=== PATIENT | male | born 1980 | race Caucasian/White ===

== ENCOUNTER 2025-04-11 15:32 | Inpatient (IN) | payer OTHER, SELFPAY ==
[2025-04-11 15:00] VITALS: BP 96/66
--- NOTE | 2025-04-11 16:30 | PTCARENOTE ---
Received pt directly from Dr. Rivers's office. Pt noted to have a foul smelling LT buttock abscess, draining brown fecal material. Old dressing removed, cleansed and 4x4 and ABD placed over fistula site. LT buttock drain present as well into LT
fistula area, and tubing going down pt's LT leg. Pt wearing his own pull ups to contain the fecal matter oozing from LT buttock. IV fluids to be started as ordered. Knee high teds applied and seq at bedside. Pt aware he can have clear liqs if he
wishes. Pt will be placed into a private room when available.
[2025-04-11 16:35] LABS: INR 1.14; PT 14.9 Sec (11.4-14.6)
[2025-04-11 16:36] LABS: APTT 38.3 Sec (23.4-35.0)
[2025-04-11 16:51] LABS: Blood Urea Nitrogen 20 mg/dl (9-20); Calcium 8.7 mg/dl (8.4-10.2); Carbon Dioxide 24 mmol/L (22-30); Chloride 102 mmol/L (98-107); Glucose 112 mg/dl (70-99); Potassium 4.1 mmol/L (3.5-5.1); Sodium 133 mmol/L (135-145); eGFR > 60.00
[2025-04-11 16:59] LABS: Hematocrit 26.4 % (39.0-52.0); Hemoglobin 7.5 g/dL (13.0-18.0); Mean Corp Hgb Conc. 28.4 g/dL (33.0-37.0); Mean Corpuscular Hgb 18.7 pg (27.0-31.0); Mean Corpuscular Volume 65.7 fL (80.0-94.0); Mean Platelet Volume 8.7 fL (7.4-10.4); Platelet Count 634 10^3/uL (130-400); Red Blood Cell Count 4.02 10^6/uL (4.70-6.10); Red Cell Dist. Width 16.8 % (11.5-14.5); White Blood Cell Count 15.8 10^3/uL (4.8-10.8)
[2025-04-11] MEDS: NORMOSOL-R/PLASMALYTE-A 1000 IV (17:33)
[2025-04-11 17:49] LABS: ALT (SGPT) 21 U/L (0-50); AST (SGOT) 24 U/L (17-59); Albumin 3.4 g/dl (3.5-5.0); Alkaline Phosphatase 58 U/L (38-126); Blood Urea Nitrogen 20 mg/dl (9-20); Calcium 8.6 mg/dl (8.4-10.2); Carbon Dioxide 25 mmol/L (22-30); Chloride 102 mmol/L (98-107); Glucose 110 mg/dl (70-99); Potassium 4.1 mmol/L (3.5-5.1); Sodium 135 mmol/L (135-145); Total Bilirubin 0.6 mg/dl (0.2-1.3); Total Protein 6.1 g/dl (6.3-8.2); eGFR > 60.00
[2025-04-11 18:30] LABS: % Basophils 0.2 % (0-2); % Immature Granulocytes 0.6 % (0-0.5); % Lymphocytes 4.6 % (20.5-51.1); % Monocytes 6.4 % (1.7-9.3); % Neutrophils 88.2 % (42.2-75.2); Absolute Immature Granulocytes 0.1 10^3/uL (0-0.05); Absolute Lymphocytes 0.7 10^3/uL (1.2-3.4); Anisocytosis 1+; Hypochromasia 1+; Macrocytosis Occasional; Nucleated Red Blood Cells % 0 % (-); Ovalocytes 1+; Poikilocytosis 1+
[2025-04-11 18:36] LABS: Normal RBC Morphology No
[2025-04-11 23:03] VITALS: BP 110/66
[2025-04-12] MEDS: NORMOSOL-R/PLASMALYTE-A 1000 IV (05:57)
--- NOTE | 2025-04-12 06:49 | CON.GI ---
Addendum entered and electronically signed by Sudhir Luevano MD 04/12/25 14:03:
I saw and examined the patient.
The PROPAGATOR or PA's note was reviewed and I agree with the note.
Comment: 44yo pt with perianal Crohn's disease known to me but lost to follow up. Was on remicade in past, but switched to humira possibly due to insurance reasons. Developed peiranal disease and switched to Cimzia. Eventually, he stopped cimzia
and acquired predisone on his own since he felt more comfortable on steroids and was seen at another GI practice briefly then lost to follow up. Perianal disease has worsened. CT shows extensive perianal disease. He has a drain placed via L
buttock into prior abscess. Drain study today shows prompt filling of rectum via multiple tracts. CT shows extensive fistulous disease between loops of colon and to the skin and presacral space.
RECTAL- extensive perianal disease with several setons in place through multiple fistulous tracts with severe distortion of anus. L buttock drainage catheter in place.
REC:
Pt now has severe perianal Crohn's disease that has progressed on chronic steroids, off biologics
Pt anxious about staying in the hospital and declined blood transfusion for Hgb 6.5 despite recommendations from all providers
I reinforced the importance of addressing his severe Crohn's disease and probable need for diverting colostomy to get control of his perianal disease
I discussed starting biologics to attempt to help control disease medically. No residual abscess on CT or IR drain study
I told him I would leave my contact info on d/c instructions to follow up in the office while working with Colorectal Surgery for optimal management of his disease
These interventions could be accomplished with more urgency as an inpatient
Original Note:
Consultation
-
Date/Time Consultation Requested: 04/11/25 1700
Date/Time Consultation Performed: 04/12/25 0900
Requesting Provider: Damian Rivers MD
Performing Provider: MICKY Sims, Sudhir Luevano MD
Reason for Consultation: crohn's disease
Medical History
Chief Complaint / HPI
History of Present Illness:
Pt is a 44yow with history of crohns with anal fistulizing disease with stricturing, pelvic abscesses and prior fistulectomy, and seton placement. He was initially diagnosed in 2007 with prednisone therapy. He was placed on Remicade infusion
from 2007 til 2015 and did very well on therapy. He then was placed on Humira [id number] due to insurance issues and while on Humira developed anal fistulas. He then switched to Cimzia. He then stopped Cimzia around 2020 on his own and obtained
Prednisone from [facility]. He has been off biologic therapy since that time with continued Prednisone use. He admits he only saw Dr. Maldonado for a few visits and has been non compliant with any GI follow up. He has evaluation with Dr. Rivers in
2021 with placement of IR drains then recently returned for further intervention. He admits to poor follow up for drain management with several drains in place for last few years. He now presents for further management and asked to see for
continued medical therapy for crohn's disease. Last colonoscopy was in [address] Luevano - Inflammation was found from the anus to the cecum secondary to pancolitis. Biopsied - The examined portion of the ileum was normal. Biopsied. bx
transverse with minimal active colitis and descending with some slight evidence of chronicity, rectal biopsy with acute erosive inflammation with crypt abscess formation and cryptitis with evidence of chronicity.
At this time patient admits to slow wt loss with baseline around 215 and now 170 range. His major complaint is continued drainage and incontinence from rectal fistulas and admits to passage of formed stools. he did have vomiting recently
related to viral illness but not a chronic issues. He denies dysphagia, GERD,abdominal pain, fever, or rectal bleeding. CT pending to be completed. Labs noted with hbg down to 7.5 with drop to 6.8 after admission with MCV 65.7, WBC 15,8,
platelets 634, Na 133, CRP 269.7, albumin 3.4, otherwise stable labs.
Past Medical History
Past Medical History: CVA (TIA) and Other (crohns disease with hx fistulizing disease with recurrent perirectal abscess , ABDIRIZAK, liver hemangiomas )
Past Surgical History: Other (multiple colorectal interventions for fistulizing disease with prior fistulectomy and seton placement, lump removal from shoulder, neck cyst drainage)
Social History
Tobacco: Non-Smoker
Alcohol: None
Drug: None
Living: With Family (parents )
Employment: Employed (district infection control manager )
Family History
Family History: Other (father with ulcerative colitis, no family hx colon CA)
Allergies / Home Medications
Allergy/AdvReac Type Severity Reaction Status Date / Time
penicillin G Allergy Hives Verified 02/06/22 13:02
Penicillins Allergy Hives Verified 02/06/22 13:02
�Medication �Instructions �Recorded
Lactobac no.2-Bifidobac no.1-S. 1 cap PO DAILY Supplement 02/06/22
thermo 112.5 billion cell capsule
(High Potency Probiotic)
certolizumab pegol 400 mg/2 mL 400 mg SC Q2W Antirheumatic, 02/06/22
(200 mg/mL x2) subcutaneous Disease Modifying;
syringe kit (Cimzia)
cholecalciferol (vitamin D3) 50 2,000 units PO DAILY Supplement 02/06/22
mcg (2,000 unit) tablet
cyanocobalamin (vitamin B-12) 100 100 mcg PO DAILY Supplement 02/06/22
mcg tablet
hydrocodone 5 mg-acetaminophen 325 1 - 2 tab PO Q6HPRN PRN moderate 02/06/22
mg tablet pain
ineolyzcb-HJN-ER-acetaminophen 02/08/22
6.25 mg-30 [id number]-828mq/15mL oral
liqd
melatonin 5 mg tablet 02/08/22
levofloxacin 750 mg tablet 750 mg PO DAILY 7 days #7 tabs 02/09/22
metronidazole 500 mg tablet 500 mg PO TID 7 days #21 tabs 02/09/22
prednisone 20 mg tablet 20 mg PO DAILY INFLAMMATION ##0 02/09/22
Review of Systems
-
History Source: Patient
Constitutional: Reports Weight Loss
EENT: Reports No Symptoms
Respiratory: Reports No Symptoms
Cardiac: Reports No Symptoms
Abdomen/GI: Reports Diarrhea (with fecal leakage from anal fistulas )
: Reports No Symptoms
Musculoskeletal: Reports No Symptoms
Skin: Reports No Symptoms
Neurological: Reports Weakness
Endocrine: Reports No Symptoms
Hematologic/Lymphatic: Reports No Symptoms
Vital Signs
Temp Pulse Resp BP Pulse Ox
99.1 F 93 18 110/66 95
04/11/25 23:03 04/11/25 23:03 04/11/25 23:03 04/11/25 23:03 04/11/25 23:03
Physical Exam
Exam
General: Well Developed, Well Nourished and No Apparent Distress
HEENT: Normocephalic and Anicteric
Respiratory: Clear
Cardiac: Regular Rhythm
GI: Soft, Non Tender and Distended (lower abdominal fullness )
Rectal: Other (left buttock with drainage catheter with mucous drainage from site, rectal area with large amount of draining foul smelling brown stool and nodularity with fistulas-- some limitation with pt ability to turn )
Musculoskeletal: No Clubbing and No Cyanosis
Skin: Warm and Dry
Neuro: Awake, Alert and AO x 3
Psych: Calm
Results
WBC 15.8 10^3/uL (4.8-10.8) H 04/11/25 16:17
Hgb 7.5 g/dL (13.0-18.0) L 04/11/25 16:17
Hct 26.4 % (39.0-52.0) L 04/11/25 16:17
MCV 65.7 fL (80.0-94.0) L 04/11/25 16:17
Plt Count 634 10^3/uL (130-400) H 04/11/25 16:17
Absolute Neuts (auto) 14.0 10^3/uL (1.4-6.5) H 04/11/25 16:17
PT 14.9 Sec (11.4-14.6) H 04/11/25 16:17
INR 1.14 04/11/25 16:17
APTT 38.3 Sec (23.4-35.0) H 04/11/25 16:17
Sodium 135 mmol/L (135-145) 04/11/25 17:21
Potassium 4.1 mmol/L (3.5-5.1) 04/11/25 17:21
Chloride 102 mmol/L (98-107) 04/11/25 17:21
Carbon Dioxide 25 mmol/L (22-30) 04/11/25 17:21
BUN 20 mg/dl (9-20) 04/11/25 17:21
Creatinine 1.1 mg/dL (0.7-1.3) 04/11/25 17:21
Calcium 8.6 mg/dl (8.4-10.2) 04/11/25 17:21
Total Bilirubin 0.6 mg/dl (0.2-1.3) 04/11/25 17:21
AST 24 U/L (17-59) 04/11/25 17:21
ALT 21 U/L (0-50) 04/11/25 17:21
Alkaline Phosphatase 58 U/L (38-126) 04/11/25 17:21
Diagnostic Image Results:
2008 MR ABDOMEN W/O & W CONTRAST
Impression: Two small hepatic lesions which are most likely hemangiomas.
Renal cysts.
02/06/22 CT Abd/Pel (IV only)-DH only
Two new fluid collections with air-fluid levels about the rectum consistent with abscesses. 6.1 x 3.0 cm and 1.8 x 1.7 cm
Additional tiny pockets of extraluminal air possibly secondary to additional abscesses versus sequela of previous abscesses or fistula formation/microperforation. New. This could further be evaluated by administration of oral contrast.
Moderate fecal material throughout the colon.
Too small to characterize hypodense bilateral renal lesions likely benign cysts.
Numerous tiny appendicoliths versus oral contrast in an otherwise normal-appearing appendix.
This case was discussed with Elbert Ledezma on 02/06/2022 at 6:25 PM. He states the patient is scheduled for surgery tomorrow. More recent previous CAT scans were performed [facility] and are not available for review
2021- multiple abscess drainages
Prior GI Procedures:
EGD: none
Colonoscopy:
06/2014 colonoscopy [facility]- - Inflammation was found from the anus to the cecum secondary to pancolitis. Biopsied - The examined portion of the ileum was normal. Biopsied. bx transverse with minimal active colitis and descending with some slight
evidence of chronicity, rectal biopsy with acute erosive inflammation with crypt abscess formation and cryptitis with evidence of chronicity
Assessment / Plan
-
Pt is a 44yow with history of crohns with anal fistulizing disease with stricturing, pelvic abscesses and prior fistulectomy, and seton placement. He was initially diagnosed in 2007 with prednisone therapy. He was placed on Remicade infusion
from 2007 til 2015 and did very well on therapy. He then was placed on Humira [id number] due to insurance issues and while on Humira developed anal fistulas. He then switched to Cimzia. He then stopped Cimzia around 2020 on his own and obtained
Prednisone from [facility]. He has been off biologic therapy since that time with continued Prednisone use. He admits he only saw Dr. Maldonado for a few visits and has been non compliant with any GI follow up. He has evaluation with Dr. Rivers in
2021 with placement of IR drains then recently returned for further intervention. He admits to poor follow up for drain management with several drains in place for last few years. He now presents for further management and asked to see for
continued medical therapy for crohn's disease. Last colonoscopy was in [address] Luevano - Inflammation was found from the anus to the cecum secondary to pancolitis. Biopsied - The examined portion of the ileum was normal. Biopsied. bx
transverse with minimal active colitis and descending with some slight evidence of chronicity, rectal biopsy with acute erosive inflammation with crypt abscess formation and cryptitis with evidence of chronicity. Labs noted with hbg down to 7.5 with
drop to 6.8 after admission with MCV 65.7, WBC 15.8, platelets 634, Na 133, CRP 269.7, albumin 3.4, otherwise stable labs.
-fistulizing crohns disease with multiple draining rectal fistulas on exam marked elevated CRP
-microcytoic anemia
-leukocytosis
PLAN;
Etiology of symptoms with concern continued crohns with severe fistulizing disease
agree with CT to eval for pelvic abscess, status of fistula--
likely may need MR pelvis pending results
for hospitalist and IR eval
await plan from colorectal likely may need further drainage
currently on Prednisone 20mg daily
pt will need to consider restart of biologic therapy -- will review with Dr. Luevano
add ESR, CRP, fecal stevie
add hepatitis B/C and TB testing
clear diet
trend hbg t/c transfusion
iron studies, B12, folate pending to see if benefit from iron therapy
cont compression stocking for DVT prophylaxis -- consider changing to Lovenox as high risk for DVT with active IBD
pt states he will stay for CT and labs but intends to leave today-- encouraged to stay for work up and treatment -- from GI standpoint with severe disease and anemia would need to sign out AMA
-
-
Thank you for consultation and allowing me to participate in the patient's care. Please call the injection maintenance technician GI physician during the after hours with any questions or concerns.
[2025-04-12 07:29] VITALS: BP 106/63
[2025-04-12 08:43] LABS: Erythrocyte Sed Rate 106 mm/hour (0-20)
[2025-04-12 08:45] LABS: % Basophils 0.4 % (0-2); % Eosinophils 0.3 % (0-6); % Immature Granulocytes 0.7 % (0-0.5); % Lymphocytes 6.9 % (20.5-51.1); % Monocytes 10.5 % (1.7-9.3); % Neutrophils 81.2 % (42.2-75.2); Absolute Basophils 0.1 10^3/uL (0-0.2); Absolute Immature Granulocytes 0.1 10^3/uL (0-0.05); Absolute Lymphocytes 0.8 10^3/uL (1.2-3.4); Absolute Monocytes 1.2 10^3/uL (0.1-0.6); Absolute Neutrophils 9.6 10^3/uL (1.4-6.5); Hematocrit 23.4 % (39.0-52.0); Hemoglobin 6.8 g/dL (13.0-18.0); Mean Corp Hgb Conc. 29.1 g/dL (33.0-37.0); Mean Corpuscular Volume 65.5 fL (80.0-94.0); Mean Platelet Volume 9.1 fL (7.4-10.4); Nucleated Red Blood Cells % 0 % (-); Platelet Count 547 10^3/uL (130-400); Red Blood Cell Count 3.57 10^6/uL (4.70-6.10); Red Cell Dist. Width 16.7 % (11.5-14.5); White Blood Cell Count 11.8 10^3/uL (4.8-10.8)
[2025-04-12 08:50] LABS: Blood Urea Nitrogen 19 mg/dl (9-20); Calcium 8.6 mg/dl (8.4-10.2); Carbon Dioxide 28 mmol/L (22-30); Chloride 102 mmol/L (98-107); Glucose 86 mg/dl (70-99); Potassium 4.1 mmol/L (3.5-5.1); Sodium 136 mmol/L (135-145); eGFR > 60.00
--- NOTE | 2025-04-12 09:27 | HPS.HSE ---
Family Physician
-
Family Physician: NO INTERVIEW UNKNOWN
Chief Complaint
-
anal fistulas
History of Present Illness
44-year-old male presents as a direct admission after discussion with Dr. Rivers in clinic on 04/03/2025. The patient is known to our service in the past for severe Crohn's disease of the rectum and anal area with anal fistulas, anal stricturing, and
a chronic pelvic abscess. He did have an IR drain placed at 1 point in 2021 which has remained in place. He is under the care of Dr. Maldonado of GI and at one point was on Biologics but currently is now only on prednisone. His last colonoscopy
appears to have been from Dr. Luevano in 2013 which showed gross inflammation from the anus to the cecum. Biopsies were done and this showed microscopic inflammation and colitis in the transverse colon. The terminal ileum grossly looked normal. The
patient states he is still dealing with anal fistula problems. He has seton drains that are still in place. He may have undergone a pelvic CT at [facility] in [place] in December but the report is not available and the patient does not know the
results. He has been eating well and his weight has been stable. He denies any upper or lower GI symptoms. He sometimes feels fatigued. His bowel movements are formed. Sometimes he has issues with incontinence at night and wears an adult diaper.
He is requesting a colostomy creation due to the chronic fistulas. The IR drain has been in place since 2021 and he states that the bag broke off and he manages it with 4 x 4 gauzes. The drain currently is putting out feculent material. He was
told by his GI doctor that he would need surgery due to the extent of his disease. He was referred to [place] but opted to seek out Dr. Rivers's opinion due to proximity. Given the above, we have direct admitted him for GI workup as well as imaging
and IR consultation for management of the drain in place.
Medical History
Past Medical History
Past Medical History: Reports Other (crohns disease with anal fistulas and abscesses, TIA, iron deficiency anemia)
Past Surgical History: Reports Other (lump removed left shoulder, cyst drained in ER in the neck 2016, fistula surgery: 2016 (x3), 2017 (x2), IR drain placement 2021)
Social History
Tobacco: Non-smoker
Family History
Family History: Not pertinent
Allergies / Home Medications
Allergies reflects when Allergies were last updated in [employer].
Home Medications with original date entered in [employer]
Allergy/Medication List:
Allergies: penicillin - hives
Medications:
Vit D 2,000 units po daily
Vitamin B12 100mcg po daily
Probiotic 1 cap po daily
Tylenol #3 1-2 tabs po q6h prn pain
Melatonin po PRN
Prednisone 10mg po daily
Review of Systems
-
History Source: Patient
A 12 point ROS was completed and negative except as noted: Yes
Abdomen/GI: Reports Diarrhea and Other (Occasional incontinence and wears a diaper at night. )
Physical Exam
Vital Signs
Vital Signs
Temp Pulse Resp BP Pulse Ox
98.6 F 87 18 106/63 99
04/12/25 07:29 04/12/25 07:29 04/12/25 07:29 04/12/25 07:29 04/12/25 07:29
Physical Exam
General: Well Developed, Well Nourished and No Apparent Distress
GI: Soft, Non Tender and Non Distended
Rectal: Other ( IR drain in place. Multiple fistulas throughout the perianal area.)
Skin: Warm and Dry
Neuro: AO x 3
Laboratory Results
-
04/12/25 07:32
04/12/25 07:32
Laboratory Results
PT 14.9 Sec (11.4-14.6) H 04/11/25 16:17
INR 1.14 04/11/25 16:17
APTT 38.3 Sec (23.4-35.0) H 04/11/25 16:17
Total Bilirubin 0.6 mg/dl (0.2-1.3) 04/11/25 17:21
AST 24 U/L (17-59) 04/11/25 17:21
ALT 21 U/L (0-50) 04/11/25 17:21
Alkaline Phosphatase 58 U/L (38-126) 04/11/25 17:21
Data Reviewed
-
Lab Data: Labs Reviewed by me, Discussed with Physician and Discussed with Patient
Old Records: Reviewed
Impression/Plan
-
IMPRESSION:44-year-old male with a history of Crohn's disease currently on prednisone 10 mg daily and managed by Dr. Maldonado with gastroenterology, presents as a direct admit to [facility] for further workup and potentially surgery
PLAN:
- IR consulted for a drain study
- Gastroenterology consult
- Hemoglobin 6.8. Will plan on transfusing 1 unit packed red blood cell and trend hemoglobin. Likely this is anemia of chronic disease.
- Remain on clears for now
- Will consult hospitalist for medical management
- Continue on prednisone 10 mg daily for now
- CT abdomen and pelvis ordered, plans to follow
- Wound RN consulted
- C-reactive protein 269.7. Trend.
- Fecal procalcitonin pending
--- NOTE | 2025-04-12 09:36 | CON.HOSP ---
Family Physician
-
Family Physician: NO INTERVIEW UNKNOWN
Chief Complaint
-
General Malaise
History of Present Illness
44M poorly controlled Crohn's dz presents as direct admission after discussion with Dr. Rivers in clinic on 04/03/2025. Hx significant for severe Crohn's disease of the rectum and anal area with anal fistulas, stricturing, and chronic pelvic abscess
s/p IR drain placement. Following drain placement, patient was lost to follow up. Drain has remained in place since then. Presenting with worsening perianal complaints. Patient was direct admit for further evaluation treatment- concern requiring
diverting ostomy to promote healing perianal lesions. Patient also noted with worsening anemia during hospitalization Hgb <7. Vitals signs otherwise stable on room air. Hospitalist service consulted for further assistance medical mgmt.
Medical History
Allergies / Home Medications
Allergies reflects when Allergies were last updated in [employer].
Home Medications with original date entered in [employer]
Allergy/Medication List:
Allergies
Allergy/AdvReac Type Severity Reaction Status Date / Time
penicillin G Allergy Hives Verified 02/06/22 13:02
Penicillins Allergy Hives Verified 02/06/22 13:02
Home Medications
Lactobac no.2-Bifidobac no.1-S. thermo 112.5 billion cell capsule (High Potency Probiotic) 1 cap PO DAILY Supplement 02/06/22
cholecalciferol (vitamin D3) 50 mcg (2,000 unit) tablet 2,000 units PO DAILY Supplement 02/06/22
cyanocobalamin (vitamin B-12) 100 mcg tablet 100 mcg PO DAILY Supplement 02/06/22
hydrocodone 5 mg-acetaminophen 325 mg tablet 1 - 2 tab PO Q6HPRN PRN moderate pain 02/06/22
qnhylbkze-LVK-FU-acetaminophen 6.25 mg-30 wk-44me-103gs/15mL oral liqd 02/08/22
melatonin 5 mg tablet PO PRN PRN difficulty sleeping 02/08/22
prednisone 20 mg tablet 20 mg PO DAILY INFLAMMATION ##0 02/09/22
Physical Exam
Vital Signs
Vital Signs
Temp Pulse Resp BP Pulse Ox
98.6 F 87 18 106/63 99
04/12/25 07:29 04/12/25 07:29 04/12/25 07:29 04/12/25 07:29 04/12/25 07:29
Laboratory Results
-
Laboratory Results
04/12/25 07:32
04/12/25 07:32
PT 14.9 Sec (11.4-14.6) H 04/11/25 16:17
INR 1.14 04/11/25 16:17
APTT 38.3 Sec (23.4-35.0) H 04/11/25 16:17
Total Bilirubin 0.6 mg/dl (0.2-1.3) 04/11/25 17:21
AST 24 U/L (17-59) 04/11/25 17:21
ALT 21 U/L (0-50) 04/11/25 17:21
Alkaline Phosphatase 58 U/L (38-126) 04/11/25 17:21
Impression / Plan
-
Physical Exam
General: Some pallor noted, cyanosis, or jaundice. Generally appears unwell
HEENT: Throat clear, Normocephalic atraumatic, Pale palpebral conjunctivae
NECK: Supple. No JVD Carotid Bruits
RESPIRATORY: Lungs clear to auscultation. No crackles wheezes stridor
CVS: S1, S2 normal. RRR. No murmur, rub or gallop
ABDOMEN: Soft, non-tender. No distension. BS+/normal.
EXTREMITIES: No peripheral cyanosis or edema. Delayed capillary refill fingertips
Neuro: AOx3 conversant coherent
IMPRESSION:
44M poorly controlled Crohn's dz presents as direct admission after discussion with Dr. Rivers in clinic on 04/03/2025. Hx significant for severe Crohn's disease of the rectum and anal area with anal fistulas, stricturing, and chronic pelvic abscess
s/p IR drain placement. Following drain placement, patient was lost to follow up. Drain has remained in place since then. Presenting with worsening perianal complaints. Patient was direct admit for further evaluation treatment- concern requiring
diverting ostomy to promote healing perianal lesions. Patient also noted with worsening anemia during hospitalization Hgb <7. Vitals signs otherwise stable on room air. Hospitalist service consulted for further assistance medical mgmt.
PLAN:
severe Crohn's dz with perianal fistulas strictures
hx pelvic abscess with IR drain placement lost to follow up
Severe anemia, likely underlying Anemia of Chronic Disease
Leukocytosis
Though Vital Signs Stable on Room air, patient appears unwell
Follow up CT
Check Blood Cultures
Discussed with patient recommendation for transfusion given low Hgb 6.8.
Patient AOx3 at capacity to make his own medical decisions- declined consent for transfusion
Discussed the risks and potential benefits of transfusion vs refusing transfusion. Included in discussion was possibility of cardiac event with severe anemia and even the possibility of .
Patient able to verbalize his understanding of risks/benefits discussed and nonetheless declines to receive transfusion at this time. Patient aware to notify nurse/staff should he change his mind.
Empiric abx levofloxacin flagyll
ID GI eval
Cont mgmt as per primary CRS
I spent a total of 80 minutes with the patient or on the floor. More than 50% of this time involved counseling and coordination of care.
[2025-04-12] MEDS: DELTASONE 10 MG PO (09:40)
[2025-04-12] MEDS: OMNIPAQUE 50 ML PO (09:40)
[2025-04-12 10:39] VITALS: BMI 21.6
--- NOTE | 2025-04-12 10:40 | W.PN.UPDATE ---
Update Note
Progress Note Update
Discussed with patient recommendation for transfusion given low Hgb 6.8.
Patient AOx3 at capacity to make his own medical decisions- declined consent for transfusion
Discussed the risks and potential benefits of transfusion vs refusing transfusion. Included in discussion was possibility of cardiac event with severe anemia and even the possibility of .
Patient able to verbalize his understanding of risks/benefits discussed and nonetheless declines to receive transfusion at this time. Patient aware to notify nurse/staff should he change his mind.
[2025-04-12 10:46] LABS: Total Iron Binding Capacity 194 ug/dl (261-462)
[2025-04-12 10:47] LABS: Iron < 20 ug/dl (49-181)
[2025-04-12 10:55] VITALS: BMI 22.0
[2025-04-12 11:03] LABS: Lactic Acid 0.9 mmol/L (0.7-2.0)
[2025-04-12 11:25] LABS: Hematocrit 22.3 % (39.0-52.0); Hemoglobin 6.5 g/dL (13.0-18.0)
--- NOTE | 2025-04-12 12:33 | CM ---
hostel manager reviewed patient's chart and met with patient and patient states he lives with his parents in a multilevel home, patient is independent with adl's and ambulation, no dme, per patient his plan it to return to home today.
PCP: Dr Davis
Pharmacy: [facility] in [place].
[2025-04-12 12:41] LABS: Folate 18.9 ng/ml (2.76-20); Vitamin B12 593 pg/ml (239-931)
--- NOTE | 2025-04-12 13:00 | WOUNDNOTE ---
WOC RN NOTE: Reviewed chart and met with patient. Patient has fistula to right buttock. At time of assessment patient wanted to leave AMA but was agreeable to have his fistula assessed. He declined offer for possible pouching solutions but was
agreeable to try barrier cream around drains site. The fistula site was cleaned and barrier ointment applied around drain. Patient likes to cover area with ABD, secure with tape and brief. Will follow as needed.
--- NOTE | 2025-04-12 13:55 | PTCARENOTE ---
Patient adamant about going home today, despite informing patient of risks of leaving AMA at this time. Dr. Rivers in to discuss risks as well, patient still deciding to leave AMA. AMA form signed by both Dr. Gill and patient and placed in chart.
Patient IV removed.
--- NOTE | 2025-04-12 15:06 | W.PN.UPDATE ---
Update Note
Progress Note Update
CT reviewed earlier with Dr. Ann. Multiple pelvic fistulas without fluid collection. Transgluteal drain in place (tip in rectal lumen). Would be reasonable to pull IR drain. Patient agreeable but wants to do next week. Patient anxious and
decided to leave AMA despite my urgings.
--- NOTE | 2025-04-12 15:06 | W.PN.UPDATE ---
Update Note
Progress Note Update
I went to see patient, but he had already signed out AMA.
[2025-04-13 15:16] LABS: Hepatitis B Core Ab, IgM Negative (Negative)
[2025-04-13 15:38] LABS: Hepatitis B Surface Antigen Negative (Negative)
[2025-04-13 15:57] LABS: Hepatitis B Core Ab, Total Negative (Negative); Hepatitis B Surface Antibody Negative; Hepatitis C Antibody Negative (Negative)
== END 2025-04-12 14:48 | disposition left against medical advice (07) | DRG 385 ==
LOC: 4 WEST ACU 15:32
PROVIDERS: Nurse Practitioner Adult Health; Physician Assistant; ADMITTING PHYSICIAN Surgery; CONSULT PHYSICIAN Internal Medicine; CONSULT PHYSICIAN Internal Medicine Gastroenterology
DX: K50.113 Crohn's disease of large intestine with fistula (principal); K65.1 Peritoneal abscess; R32 Unspecified urinary incontinence; D63.8 Anemia in other chronic diseases classified elsewhere; D18.03 Hemangioma of intra-abdominal structures; Z86.73 Personal history of transient ischemic attack (TIA), and cerebral infarction without residual deficits; Z88.0 Allergy status to penicillin
CPT/HCPCS: 74177; 80048; 80053; 82607; 82728; 82746; 83540; 83550; 83605; 85014; 85018; 85025; 85610; 85652; 85730; 86140; 86480; 86704; 86705; 86706; 86803; 86850; 86900; 86901; 87040; 87070; 87340; 93005; Q9967

== ENCOUNTER → 2025-04-25 09:55 | Outpatient (REF) | payer OTHER, SELFPAY ==
[2025-04-25 10:10] VITALS: BP 129/81; BP_SYST 119
[2025-04-25 10:50] VITALS: BP 131/91; BP_SYST 106
[2025-04-25 11:04] VITALS: BP 131/91
== END ==
LOC: RADI 09:55
PROVIDERS: ATTENDING PHYSICIAN Surgery
DX: Z46.82 Encounter for fitting and adjustment of non-vascular catheter (principal); K65.1 Peritoneal abscess
CPT/HCPCS: 49424; 76080

== ENCOUNTER 2025-05-10 11:21 | Outpatient (RCR) | payer OTHER, SELFPAY ==
[2025-05-10 11:50] VITALS: BP 99/64
[2025-05-10 12:11] VITALS: BP 113/67
[2025-05-10 14:11] VITALS: BP 114/74
== END 2025-05-29 23:59 | disposition home or self-care (01) ==
LOC: OID 11:21
PROVIDERS: ATTENDING PHYSICIAN Internal Medicine Gastroenterology; FAMILY PHYSICIAN Internal Medicine
DX: K50.80 Crohn's disease of both small and large intestine without complications (principal); K65.1 Peritoneal abscess; K60.30 Anal fistula, unspecified; K62.4 Stenosis of anus and rectum
CPT/HCPCS: 36415; 36430; 86850; 86900; 86901; 86920; P9016

== ENCOUNTER 2025-05-31 06:31 | Day surgery (SDC) | payer OTHER, SELFPAY | END 2025-05-31 09:34 | disposition home or self-care (01) | LOC: GI 06:31 | PROVIDERS: ATTENDING PHYSICIAN Internal Medicine Gastroenterology | DX: K60.30 Anal fistula, unspecified (principal); K50.113 Crohn's disease of large intestine with fistula; K52.9 Noninfective gastroenteritis and colitis, unspecified; K51.418 Inflammatory polyps of colon with other complication | CPT/HCPCS: 45380; 88305 ==

== ENCOUNTER 2025-08-11 14:11 | Inpatient (IN) | payer OTHER, SELFPAY ==
[2025-08-11] VITALS (12 sets, daily range): BP systolic 95–123; BP diastolic 57–76; BMI 18.6; BMI 17.6
--- NOTE | 2025-08-11 12:47 | ED.GENMED ---
History of Present Illness
General
Chief Complaint: Abnormal Lab Value
Time Seen by Provider: 08/11/25 12:47
History of Present Illness
History of Present Illness:
FOCUSED PAST MEDICAL HISTORY
- Crohn's, anal abscess/fistula
REVIEW OF OLD RECORDS
- Hemoglobin 04/12/2025 was 6.5. The patient had colonoscopy with Dr. Jefferson May 2025 for follow-up of Crohn's disease and at that time extensive fistulas were noted in the perianal region with drainage
Note:
CHIEF COMPLAINT(S)
Scheduled for colostomy due to Crohns disease and low hemoglobin levels.
HISTORY OF PRESENT ILLNESS
The patient is a 44-year-old male with a history of severe Crohns disease. He is scheduled for a colostomy, which was initially planned for August 24 but has now been moved to the upcoming . He was advised by Dr. Rivers, who is managing
his care, to be admitted for a blood transfusion. The patients recent hemoglobin level was 6.14, [facility] He reports previously received blood transfusions, which provided temporary relief of symptoms, noting an
improvement in energy levels that quickly diminished by the following day.
The patient describes chronic abdominal pain persisting for several months, for which he has been self-medicating with prednisone until May. Additionally, the patient previously used Zimzia until 2020, when he ceased the medication due to concerns
of a potential infection, later identified as a perforation in the colon. He has been off prednisone since early May and is not currently on any medication.
PAST MEDICAL AND SURGICAL HISTORY
- Severe Crohns disease.
- Previous perforation in the colon.
SOCIAL HISTORY
The patient disclosed a history of smoking cigarettes, but cessation occurred prior to this visit.
REVIEW OF SYSTEMS
- Gastrointestinal: Persistent abdominal pain for several months.
PHYSICAL EXAM
General: Alert, appears somewhat chronically ill, thin build
Skin: Warm, dry.
Head: Normocephalic, atraumatic.
Neck: Supple, trachea midline.
Eye Ears, Nose, Mouth, and Throat: Oral mucosa moist.
Cardiovascular: Normal peripheral perfusion, No edema, tachycardic.
Respiratory: Respirations are non-labored.
Gastrointestinal: Abdomen mild diffuse abdominal tenderness
Back: Normal range of motion, Normal alignment.
Musculoskeletal: Normal range of motion, normal strength.
Neurological: Alert and oriented to person, place, time, and situation, No focal neurological deficit observed.
Psychiatric: Cooperative, appropriate mood & affect.
PLAN
- Admission for blood transfusion prior to colostomy surgery.
- Follow-up consultation with Dr. Rivers to ensure management plan is appropriate.
DIFFERENTIAL DIAGNOSIS
The Differential Diagnosis includes, in no particular order and is not limited to:
- Exacerbation of Crohns disease
- Iron deficiency anemia
- Hypovolemia
- Medication-related side effects
- Colonic perforation
- Abdominal infection
- Inflammatory bowel disease
- Gastrointestinal bleeding
- Malabsorption syndrome
- Other causes of chronic abdominal pain and low hemoglobin
These diverse considerations help guide comprehensive pre-surgical evaluation and effective management.
RADIOLOGY
- CT abdomen pelvis pending
LABS
- White count 15.1, hemoglobin 5.9 which is lower than prior, sodium 132, creatinine normal, albumin 2.9
UPDATE
- At 1 PM, I discussed case with Dr. Rivers who agrees with oral and IV contrast enhanced CT abdomen pelvis
- Patient signed consent for blood transfusion
- Notified hospitalist of admission to the hospital (recommended by Dr. Rivers) and plan for surgery this coming after medical optimization
Past History
Past History
ED Past Medical History: Other (crohns, leukemia, recurring perirectal abscesses)
ED Past Surgical History: Other (4 previous colorectal surgeries of abscesses)
Social History
Tobacco: Non-smoker
Alcohol: None
Family History
Family History: Negative Diabetes, Hypertension or CAD
Phy Exam
Physical Exam
Physical Exam:
See HPI
Course
Orders/Labs/Results
Orders:
Orders
08/11/25 12:39
Type+Screen Urgent
Complete Blood Count/With Diff Urgent
Comprehensive Metabolic Panel Urgent
PTT Urgent
Prothrombin Time Urgent
08/11/25 12:54
* Blood Bank Products Urgent
Blood Bank Products: *Packed RBC Leuko(PRBC's)
Quantity: 2
Transfuse Today: Yes
Reason: Anemia
08/11/25 12:57
Iohexol [Omnipaque] See Protocol PO NOW STA
08/11/25 12:58
CT Abd/pel W Iv And Oral Contr Urgent
Comment:
Reason For Exam: Crohn's; anemia; sent by Silvestre
08/11/25 13:08
Admit/Transfer Patient As Directed
Co-Sign Provider:
Level of Care: Inpatient admission
Assign to:: Telemetry
Physician / Group: margot
Diagnosis: anemia
Reason for Telemetry: Arrhythmia
Date to Stop Telemetry: 08/14/25
Time to Stop Telemetry: 11:00
Reason for Hospitalization: anemia
Expected length of stay greater than two midnights?: Yes
ELOS- Estimated Length of Stay in days: 3
I certify the patient meets the requirements for IP care: Yes
Code Status As Directed
Resuscitation Status: Full Code
PRN Pain Medication Management As Directed
May give lesser potent ordered pain med per pt: Yes
preference::
Protocol:: Medication orders for pain may be administered in a
manner that supports deferring to patient preference
when the pt is:
- Requesting an ordered lesser potent pain medication.
Least to most potent pain medications are defined
as: acetaminophen < NSAID < tramadol < opioids
(morphine, oxycodone, hydromorphone).
- Requesting a lesser dose of the same medication IF
ORDERED.
- Requesting a less intrusive route of administration
if both routes are prescribed by the provider (PO <
IV).
08/11/25 13:34
0.9% Sodium Chloride 1000 ml [Nss] 1,000 ml IV BOLUS
08/11/25 14:00
Blood Culture Q30M
ANDREW Source: Blood/Venous
Specimen Description:
08/11/25 14:30
Blood Culture Q30M
ANDREW Source: Blood/Venous
Specimen Description:
08/14/25 11:00
DC Protocol for Telemetry ONCE
Abnormal Lab Results
08/11/25
12:39
WBC 15.1 H 10^3/uL
(4.8-10.8)
RBC 3.15 L 10^6/uL
(4.70-6.10)
Hgb 5.9 L* g/dL
(13.0-18.0)
Hct 21.1 L %
(39.0-52.0)
MCV 67.0 L fL
(80.0-94.0)
MCH 18.7 L pg
(27.0-31.0)
MCHC 28.0 L g/dL
(33.0-37.0)
RDW 19.0 H %
(11.5-14.5)
Plt Count 946 H 10^3/uL
(130-400)
Abs Immat Gran (auto) 0.1 H 10^3/uL
(0-0.05)
Absolute Neuts (auto) 12.1 H 10^3/uL
(1.4-6.5)
Absolute Monos (auto) 1.3 H 10^3/uL
(0.1-0.6)
Neutrophils % 80.0 H %
(42.2-75.2)
Lymphocytes % 10.4 L %
(20.5-51.1)
PT 15.3 H Sec
(11.4-14.6)
APTT 41.0 H Sec
(23.4-35.0)
Sodium 132 L mmol/L
(135-145)
AST 16 L U/L
(17-59)
Total Protein 5.9 L g/dl
(6.3-8.2)
Albumin 2.9 L g/dl
(3.5-5.0)
08/11/25 12:39
08/11/25 12:39
Vital Signs
Initial and Last Documented VS:
Initial Vital Signs
Temp Pulse Resp BP Pulse Ox
36.5 C 128 18 101/62 96
08/11/25 12:33 08/11/25 12:33 08/11/25 12:33 08/11/25 12:33 08/11/25 12:33
Last Documented Vital Signs
Temp Pulse Resp BP Pulse Ox
36.5 C 100 24 106/70 96
08/11/25 12:33 08/11/25 13:11 08/11/25 13:11 08/11/25 13:11 08/11/25 12:48
*Pulse Oximetry
SaO2: 96
Oxygen Mode of Delivery: Room air
Patient hypoxic: no
*Critical Care Note
Total Time (30-74mins, 75-104mins- exclusive of procedures): Not Applicable
ED Attending Note
-
Portions of this chart may have been created with voice recognition software.� Occasional wrong word or��sound alike� substitutions may have occurred due to the inherent limitations of voice recognition software.
Discharge Plan
Departure
Patient Disposition: Admit
Date of Disposition: 08/11/25
Time of Disposition: 12:55
Presentation/result/management discussed w/ accepting MD/DO: Hospitalist
Discharge Problem:
Anemia
Interventions
Interventions:
*Risk Screen - Suicide Last Done: 08/11/25 12:33
*General Assessment Last Done: 08/11/25 12:58
*Neglect/Abuse Screening Last Done: 08/11/25 12:58
*ED- Fall Risk Assessment Last Done: 08/11/25 12:58
*ED COVID-19 Vaccine History Last Done: 08/11/25 12:58
[2025-08-11 13:09] LABS: Hematocrit 21.1 % (39.0-52.0); Hemoglobin 5.9 g/dL (13.0-18.0); Mean Corp Hgb Conc. 28.0 g/dL (33.0-37.0); Mean Corpuscular Volume 67.0 fL (80.0-94.0); Nucleated Red Blood Cells % 0 % (-); Platelet Count 946 10^3/uL (130-400); Red Cell Dist. Width 19.0 % (11.5-14.5)
[2025-08-11 13:12] LABS: INR 1.17; PT 15.3 Sec (11.4-14.6)
[2025-08-11 13:13] LABS: APTT 41.0 Sec (23.4-35.0)
[2025-08-11 13:14] LABS: ALT (SGPT) 15 U/L (0-50); AST (SGOT) 16 U/L (17-59); Albumin 2.9 g/dl (3.5-5.0); Alkaline Phosphatase 89 U/L (38-126); Blood Urea Nitrogen 12 mg/dl (9-20); Calcium 8.8 mg/dl (8.4-10.2); Carbon Dioxide 24 mmol/L (22-30); Chloride 102 mmol/L (98-107); Estimated Creatinine Clearance > 125 ml/min; Glucose 87 mg/dl (70-99); Potassium 4.3 mmol/L (3.5-5.1); Sodium 132 mmol/L (135-145); Total Protein 5.9 g/dl (6.3-8.2); eGFR > 60.00
[2025-08-11] MEDS: OMNIPAQUE 50 ML PO (13:32)
--- NOTE | 2025-08-11 13:44 | HPS.HSE ---
Family Physician
-
Family Physician:
Chief Complaint
-
Generalized weakness and purulent discharge in the left perirectal area
History of Present Illness
44-year-old male with history of Crohn's disease for quite some time with a prior fistula and sent by colorectal surgery Dr. Rivers for medical optimization and plan for ileostomy next .
Patient weak and nausea and lethargic pale looking, not in acute distress no subjective fever and chills, poor appetite and not able to eat or drink much, complaining of mild abdominal discomfort, no nausea vomiting or any diarrhea, but has a
purulent discharge in left side of the rectum and buttocks for quite some time.
Complaint of the pain in perineal area mostly on the left side and it makes it hard for him to move around.
Surgery recommended antibiotic and IV fluid while his hemoglobin around 5.9 and IR order fluid, while his hemoglobin outpatient was 6.1 therefore he was seen by surgery as mentioned above for optimization of blood transfusion.
Patient not taking any medication at point he was deemed biological agent Zimzia until 2020 and lately he was taking steroid 27 but because of the risk of the infection been discontinued in May of this year.
Medical History
Past Medical History
Past Medical History: Reports Other
Additional Past Medical History:
Past medical history:
Chron's disease
Intra-abdominal fistula
Colonic perforation
Perirectal fistula and abscess
Social history: Lives with his family, denies smoking no alcohol or drug use and is independent.
Family history: Reviewed and noncontributory
Past Surgical History: Reports Other
Social History
Unable to obtain full social history at this time due to: Other
Family History
Family History: Other
Allergies / Home Medications
Allergies reflects when Allergies were last updated in [facility].
Home Medications with original date entered in [facility]
Allergy/Medication List:
Allergies
Allergy/AdvReac Type Severity Reaction Status Date / Time
penicillin G Allergy Hives Verified 08/11/25 12:32
Penicillins Allergy Hives Verified 08/11/25 12:32
Home Medications
multivitamin 1 tab PO DAILY 04/25/25
Review of Systems
-
A 12 point ROS was completed and negative except as noted: Yes
Physical Exam
Vital Signs
Vital Signs
Temp Pulse Resp BP Pulse Ox
97.7 F 100 24 106/70 96
08/11/25 12:33 08/11/25 13:11 08/11/25 13:11 08/11/25 13:11 08/11/25 12:48
physical exam: Patient was unable to do so to the side to evaluate his perineal and perirectal area because of the pain
General: Awake, oriented x3, pale looking, lethargic, not in distress and holds appropriate conversation.
HEENT: No active discharge, ecchymosis or bruising, moist lips, tongue and mucous membrane.
Eyes: No discharge or red conjunctiva, no nystagmus, pupils are reactive and equal
Neck:Supple, no JVD no bruit no goiter.
Respiratory: Normal AP contour and diameter, normal chest wall movement, normal respiratory effort, no respiratory distress,
Lungs: Good air entry bilaterally, no wheezing or rhonchi, no rales or crackles
Heart: S1, S2 regular, normal rate, no added sound.
Gastrointestinal: Positive bowel sounds, soft, nontender, no guarding or rigidity or organomegaly,
Musculoskeletal: , no chest wall abnormality or tenderness. good range of motion, no muscle tenderness or any joint swelling or tenderness.
Extremities: No pitting edema, good peripheral pulses, good range of motion
Neurological: Awake, alert and oriented x3, speech clear and comprehensive, good muscle tone, move extremities from
Psychiatric: Normal mood, normal thought and judgment, normal affect,
Physical Exam
General: Other
Laboratory Results
-
08/11/25 12:39
08/11/25 12:39
Laboratory Results
PT 15.3 Sec (11.4-14.6) H 08/11/25 12:39
INR 1.17 08/11/25 12:39
APTT 41.0 Sec (23.4-35.0) H 08/11/25 12:39
Total Bilirubin 0.5 mg/dl (0.2-1.3) 08/11/25 12:39
AST 16 U/L (17-59) L 08/11/25 12:39
ALT 15 U/L (0-50) 08/11/25 12:39
Alkaline Phosphatase 89 U/L (38-126) 08/11/25 12:39
Data Reviewed
-
Lab Data: Labs Reviewed by me and Discussed with Patient
Old Records: Reviewed
Impression/Plan
-
IMPRESSION:
44-year-old male send by colorectal surgery for abnormal labs and optimization prior to surgery next week.
Chron's disease:
- Long history and he was on biological agents and now have more complication including perirectal fistula mostly on the left side
- IV fluid
- Broad-spectrum antibiotic vancomycin and cefepime per recommendation of surgery patient is allergic to penicillin says gets hives but he used cefepime in the past
- Surgery consult
- 2 Units of blood ordered and recheck hemoglobin.
- Give him a bolus of normal saline then normal saline at 125 mL/h
Acute on chronic anemia:
- Likely secondary to chron's disease
- Hemoglobin outpatient was 6.9 and today is 5.9
- 2 unit ordered will transfuse
- Recheck lab
Hyponatremia:
-Likely secondary to poor oral intake
- Recheck labs.
Moderate protein caloric malnutrition:
- Patient is poor appetite and overall not eating well.
- Add nutritional supplement.
- Encourage oral hydration
Fall discussed with the patient in detail and expressed understanding of the question answered
CODE STATUS full code
DVT prophylaxis Lovenox
[2025-08-11] MEDS: NSS 1000 IV ×2 (14:03→17:39)
--- NOTE | 2025-08-11 14:58 | CON.CRS ---
Consultation
-
Date/Time Consultation Requested: 08/11/2025, 12:58
Date/Time Consultation Performed: 08/11/2025, 15:00
Requesting Provider: Jorge Monique DO
Performing Provider: Damian Rivers MD
Reason for Consultation: crohns/anemia
Medical History
-
Chief Complaint: crohns
History of Present Illness:
44-year-old male with a history of severe perianal Crohn's disease as well as Crohn's colitis, with some issues of compliance, presents to [facility] due to anemia. Dr. Rivers last time in the office on 08/07/2025. He is seen by Dr. Jefferson at
[facility] as well as Dr. Gant of GI counts include [facility] beds at the [facility]. Dr. Jefferson performed a colonoscopy on him on 06/23/2025. This showed perianal fistulous disease and anal stricturing. There is inflammation from the rectum all the way up to the splenic flexure.
The sigmoid was the worst area. There were multiple polyps in the rectosigmoid area. Biopsies were done. Biopsies of the ascending terminal ileum as well as transverse colon areas were normal. The biopsies of the rectosigmoid showed active
colitis as well as inflammatory polyps. The descending colon was biopsied and came back normal. His last CAT scan was on 04/12/2025. This showed extensive Crohn's disease with fistulas in the perianal area and a fistula from the rectosigmoid to
proximal sigmoid. Dr. Rivers offered him a robotic transverse colostomy as well as evaluation of the anal rectal area and potential exchange and placement of seton drains. The hope is that the Biologics will settle the disease down afterwards and
he can be reevaluated and have eventual resection. He was scheduled for 08/17/2025. His outpatient lab showed his hemoglobin was 6.4. He was then sent to the ER for further evaluation.
Allergies / Home Medications
Allergy/AdvReac Type Severity Reaction Status Date / Time
penicillin G Allergy Hives Verified 08/11/25 12:32
Penicillins Allergy Hives Verified 08/11/25 12:32
�Medication �Instructions �Recorded �Confirmed �Type
multivitamin 1 tab PO DAILY 04/25/25 08/11/25 History
Review of Systems
-
History Source: Patient
Abdomen/GI: Abdominal Pain
A 10 point review of systems was completed, and was negative except as per HPI.
Physical Exam
Vital Signs
Temp 97.7 F 08/11/25 12:33
Pulse 93 08/11/25 14:30
Resp Rate 17 08/11/25 14:30
Blood pressure 105/66 08/11/25 14:00
SaO2 96 08/11/25 12:48
08/10/25 08/11/25 08/12/25
06:59 06:59 06:59
Actual Weight 67.6 kg
Body Mass Index (BMI) 18.6
Lab Results / Allergies
08/11/25 12:39
08/11/25 12:39
WBC 15.1 10^3/uL (4.8-10.8) H 08/11/25 12:39
Hgb 5.9 g/dL (13.0-18.0) L* 08/11/25 12:39
Hct 21.1 % (39.0-52.0) L 08/11/25 12:39
Plt Count 946 10^3/uL (130-400) H 08/11/25 12:39
Abs Immat Gran (auto) 0.1 10^3/uL (0-0.05) H 08/11/25 12:39
Neutrophils % 80.0 % (42.2-75.2) H 08/11/25 12:39
Allergy/AdvReac Type Severity Reaction Status Date / Time
penicillin G Allergy Hives Verified 08/11/25 12:32
Penicillins Allergy Hives Verified 08/11/25 12:32
Physical Exam
General: Well Developed and No Apparent Distress
GI: Soft, Non Distended and Tender (Left lower quadrant, mild)
Rectal: Other (Deferred (recent exam in the office with Dr. Rivers))
Neuro: AO x 3
Data Reviewed
-
Labs: Labs Reviewed by me and Discussed with Physician
Old Records: Reviewed
Assessment / Plan
-
Assessment: 44-year-old man with severe perianal and rectosigmoid/descending colon Crohn's disease with associated perianal and colorectal fistulas, now with anemia
Plan:
-Transfuse and recheck hemoglobin later today
- On the schedule for next , 08/17/2025
- Medical optimization prior to surgery
- IV fluids
- CT abdomen pelvis due to leukocytosis (15.1)
- Dr. Jefferson aware patient is in the ER
[2025-08-11] MEDS: FLAGYL 500 MG 100 IV (17:40)
--- NOTE | 2025-08-11 17:49 | PTCARENOTE ---
Patient admitted with anemia secondary to Chrons disease.Patient was scheduled for surgery on 08/17/25.He is alert and oriented.He rates his pain at a 5-6 out of 10.Patient reports he is often incontinent of stool.Plan is to stabilize him to prepare
him for the surgery.Vital signs are stable.The patient is in his bed with the call seymour in place.
[2025-08-11] MEDS: LEVAQUIN 100 IV (19:08)
[2025-08-11] MEDS: MELATONIN 10 MG PO (22:43)
[2025-08-12] VITALS (12 sets, daily range): BP systolic 91–106; BP diastolic 56–84
[2025-08-12] MEDS: FLAGYL 500 MG 100 IV ×4 (01:00→23:25)
--- NOTE | 2025-08-12 02:37 | PTCARENOTE ---
Pt ordered/received 2 units of blood for Hgb of 5.9; vital signs stable (see documentation); AM labs ordered.
[2025-08-12 06:36] LABS: Blood Urea Nitrogen 9 mg/dl (9-20); Calcium 8.0 mg/dl (8.4-10.2); Carbon Dioxide 23 mmol/L (22-30); Chloride 105 mmol/L (98-107); Estimated Creatinine Clearance 123 ml/min; Glucose 74 mg/dl (70-99); Potassium 4.1 mmol/L (3.5-5.1); Sodium 132 mmol/L (135-145); eGFR > 60.00
[2025-08-12 06:38] LABS: Hematocrit 20.9 % (39.0-52.0); Hemoglobin 6.3 g/dL (13.0-18.0); Mean Corp Hgb Conc. 30.1 g/dL (33.0-37.0); Mean Corpuscular Volume 70.8 fL (80.0-94.0); Platelet Count 631 10^3/uL (130-400); Red Cell Dist. Width 19.9 % (11.5-14.5)
[2025-08-12 07:22] LABS: Hematocrit 21.1 % (39.0-52.0); Hemoglobin 6.3 g/dL (13.0-18.0)
[2025-08-12 12:04] LABS: Iron 21 ug/dl (49-181)
--- NOTE | 2025-08-12 12:07 | W.PN.GS2 ---
Today's Communication / Plan
-
transfuse
diet as tolerated
Assessment / Plan
-
44-year-old male with h/o Crohn's disease of the rectosigmoid and descending colon areas with perianal fistulous disease as well as pelvic abscesses and interloop fistulas of the rectosigmoid. CT with multiple perianal fistulas and small fluid
collections with proctosigmoiditis
Tentative OR for robotic transverse colostomy
chronic anemia present; transfuse as needed, s/p 2 units on 08/11
Leukocytosis improving with IV abx
Plan:
Transfuse additional 2 units today
Diet as tolerated, encouraged protein intake
C/W IV ABX with levaquin/flagyl
Analgesics prn
SCDs while in bed, chemical vte ppx on hold until h/h stable
Subjective Data
-
Date of Service: August 12, 2025
Pt seen and examined at bedside. Ongoing diarrhea but denies bloody stools. No N/V. Tolerating meals but with poor appetite. Abdominal discomfort/pain still present but manageable.
Objective Data
-
Intake and Output
08/11/25 08/12/25 08/13/25
06:59 06:59 06:59
Intake Total 2655 / 2655 100 / 100
Output Total 1200 / 1200
Balance 1455 / 1455 100 / 100
Intake:
Oral fluids 480 / 480
IV fluids (Total) 875 / 875
IV piggybacks 550 / 550 100 / 100
Blood products 250 / 250
Blood Product Amount Infused ( 500 / 500 0 / 0
mL)
Packed Rbc Leukoreduced Unit 250 / 250
[id number]
Packed Rbc Leukoreduced Unit 250 / 250
[id number]
Packed Rbc Leukoreduced Unit 0 / 0
[id number]
Output:
Urine, Voided 1200 / 1200
Other:
Number of unmeasured liquid
stools
Rectum 3
Vital Signs
Temp Pulse Resp BP Pulse Ox
97.9 F 82 16 104/69 99
08/12/25 10:13 08/12/25 10:13 08/12/25 10:13 08/12/25 10:13 08/12/25 08:00
Lab Results
08/12/25 07:05
08/12/25 05:48
Calcium 8.0 mg/dl (8.4-10.2) L 08/12/25 05:48
Total Bilirubin 0.5 mg/dl (0.2-1.3) 08/11/25 12:39
AST 16 U/L (17-59) L 08/11/25 12:39
ALT 15 U/L (0-50) 08/11/25 12:39
Alkaline Phosphatase 89 U/L (38-126) 08/11/25 12:39
Total Protein 5.9 g/dl (6.3-8.2) L 08/11/25 12:39
Albumin 2.9 g/dl (3.5-5.0) L 08/11/25 12:39
Physical Exam
-
NAD, chronically ill appearing, underweight
ABD soft, generalized tenderness, nd
[2025-08-12 12:13] LABS: Total Iron Binding Capacity 151 ug/dl (261-462)
[2025-08-12 12:41] LABS: Ferritin 130.0 ng/ml (17.9-464.0)
[2025-08-12 12:58] LABS: Vitamin B12 826 pg/ml (239-931)
[2025-08-12 14:11] LABS: Folate 8.8 ng/ml (2.76-20)
--- NOTE | 2025-08-12 15:30 | W.PN.HOSP.TC ---
Today's Communication/Plan
-
see outlined plan
Assessment / Plan
Assessment / Plan
Assessment:
severe perianal and rectosigmoid/descending colon Crohn's disease with associated perianal and colorectal fistulas
leukocytosis
- Colorectal surgery following
- continue Levaquin/Flagyl
- OR for robotic transverse colostomy
- diet: regular
Acute anemia on anemia of chronic disease
- s/p 2 units PRBC in ER, Hb 6.3 this AM. 2 additional units ordered.
- follow AM labs
Reactive thrombocytosis
- monitor CBC
Hyponatremia
- Likely secondary to poor oral intake
- monitor BMP.
Moderate protein caloric malnutrition:
- Patient is poor appetite and overall not eating well.
- Add nutritional supplement.
- Encourage oral hydration
DVT ppx: Lovenox
Code: Full
Anticipated Discharge: > 48 hours
Subjective/Interval History
-
Date of Service: August 12, 2025
ongoing diarrhea
appetite poor
Objective Data
-
Labs:
Laboratory Results
08/12/25 08/12/25
05:48 07:05
WBC 12.7 H
Hgb 6.3 L* 6.3 L*
Hct 20.9 L* 21.1 L
Plt Count 631 H D
Sodium 132 L
Potassium 4.1
Chloride 105
Carbon Dioxide 23
BUN 9
Creatinine 0.7
Glucose 74
Calcium 8.0 L
Vital Signs:
Vital Signs
Temp Pulse Resp BP Pulse Ox
97.8 F 76 16 106/84 97
08/12/25 13:25 08/12/25 13:25 08/12/25 13:25 08/12/25 13:25 09/13/25 12:35
I&O
08/11/25 08/12/25 08/13/25
06:59 06:59 06:59
Intake Total 2655 / 2655 950 / 950
Output Total 1200 / 1200 450 / 450
Balance 1455 / 1455 500 / 500
Physical Exam
-
General: No Apparent Distress
HEENT: Normocephalic and Atraumatic
Respiratory: Negative Wheezes
Cardiac: Regular Rhythm and S1/S2
GI: Soft and Nontender
Genito-urinary: No Costovertebral Tender
Neuro: AO x 3
Psych: Calm
Data Reviewed
-
Total Time Spent with Patient (in minutes): 41
Labs: Labs Reviewed by me
[2025-08-12] MEDS: NSS 1000 IV (17:09)
[2025-08-12] MEDS: LEVAQUIN 100 IV (18:17)
[2025-08-12] MEDS: MELATONIN 10 MG PO (21:04)
[2025-08-13] MEDS: NSS IV ×2 (01:16)
[2025-08-13 03:03] VITALS: BP 91/56
[2025-08-13 07:15] LABS: Blood Urea Nitrogen 8 mg/dl (9-20); Calcium 7.9 mg/dl (8.4-10.2); Carbon Dioxide 22 mmol/L (22-30); Chloride 108 mmol/L (98-107); Estimated Creatinine Clearance 123 ml/min; Glucose 77 mg/dl (70-99); Potassium 4.0 mmol/L (3.5-5.1); Sodium 136 mmol/L (135-145); eGFR > 60.00
[2025-08-13 07:22] LABS: Hematocrit 24.6 % (39.0-52.0); Hemoglobin 7.6 g/dL (13.0-18.0); Mean Corp Hgb Conc. 30.9 g/dL (33.0-37.0); Mean Corpuscular Volume 71.3 fL (80.0-94.0); Platelet Count 552 10^3/uL (130-400); Red Cell Dist. Width 19.9 % (11.5-14.5)
[2025-08-13 07:55] VITALS: BP 100/61
--- NOTE | 2025-08-13 09:17 | CM ---
Initial assessment completed with pt.
Pt is a 44yr old male admitted with anemia and long history of Chron's Disease.
At baseline, pt lives with his parents in a multi level home with 0ste. Per pt, his bed/bath is on the first floor.
Pt is indep at home/driving. Pt does not have dme. Pt does have hx with [facility].
Pt has planned surgery next week - likely at earliest.
Pt anticipates a stoma and would feel comfortable with [facility] following at [place].
PCP; Jacinto Davis
Pharm; [facility]
PLAN; home with parents and [facility] anticipated
[2025-08-13] MEDS: FLAGYL 500 MG 100 IV ×2 (10:37→17:04)
[2025-08-13] MEDS: NSS 1000 IV (10:38)
[2025-08-13 11:25] VITALS: BP 104/62
--- NOTE | 2025-08-13 11:33 | CON.GI ---
Consultation
-
Date/Time Consultation Requested: 08/13/25
Date/Time Consultation Performed: 08/13/25
Requesting Provider:
Performing Provider:
Reason for Consultation: h/o crohns flare
Medical History
Chief Complaint / HPI
Chief Complaint: h/o crohns flare
History of Present Illness:
Patient is well-known to Dr. King in our group and Dr. Rivers from colorectal surgery. He is admitted for a planned robotic transverse colostomy for history of nonhealing perianal fistulas/abscesses and Crohn's disease of small/large bowel not
in remission. Currently patient complains of diffuse discomfort in the abdomen, no nausea or vomiting. No heartburn or trouble swallowing. He has been having at least 6-8 loose watery stool on a daily basis without any blood or black stool. He
has feculent material coming out of the perianal fistulous as well. No fever but he reports chills as an outpatient. On admission 08/11/2025, his hemoglobin was 5.9, he received 4 units of packed red blood cell transfusions, currently hemoglobin of
7.6. Brown stool documented without blood. Leukocytosis noted on admission with microcytic indices, iron deficiency and thrombocytosis. Albumin of 2.9.
CT scan of the abdomen and pelvis with IV and oral contrast 08/11/2025 shows findings of known Crohn's disease with extensive fistulous, proctocolitis with new collection along the distal colon/rectum likely representing a recurrent abscess
additional small gas containing collection in the lower anterior pelvis 2.1 x 1.3 cm appears to be associated with perianal fistula. Numerous seton catheters noted.
Patient currently on Levaquin and Flagyl and IV iron. Tolerating regular diet.
Colorectal surgery's plan is to perform a robotic transverse colostomy plus anal exam under anesthesia and potentially replacing the seton drains.
Previous GI history from Dr. King's office note 08/07/25:
patient with fistulizing Crohn's disease diagnosed with Crohn's in 2007.� Issues for 2 years before that procedure.� Symptoms with diarrhea, weight loss, abdominal pain.� Increasing stool frequency.� Drinking and smoking at that time.� Placed on
prednisone 2007 with dramatic improvement in symptoms.� Started on Remicade [id number].� Insurance required he transition to Humira.� Psoriasis worse in 2012.� He has been on mesalamine, prednisone and budesonide in the past as well.� Did humira in
2015 (unclear how long it).�In 2015 he developed perianal disease as well as perirectal abscess which he had drainage with colorectal surgery Dr. Rivers at that time; had 2 abscess drainage in 2016.� Started Entyvio 2017 was on it for 1 year.� Has
been on Cimzia since 2017.� At that time, unable to get off prednisone.� Stop Cimzia in 2020.� This was his last biologic.
At that time, Dr. Maldonado felt that Cimzia was not effective in controlling his Crohn's disease or perianal disease and he has not been unable to get off steroids.� He recommended an MRI pelvis and CT abdomen pelvis and blood work at that time.�
There is discussion about bowel rest with TPN to allow for healing of his perianal disease.� There is discussion of Stelara.� He wanted to ensure he had complete resolution of his abscesses.
He has history of noncompliance and follows up with Dr. Maldonado in 2021 and did not have abdominal imaging or follow-up with colorectal surgery.� Patient did not have CT to rule out intra-abdominal abscess.� He continued to self medicate prednisone
40 mg.� He felt at that time, patient needed hospitalization with bowel rest, TPN, steroid tapering and transition to biologic therapy to manage his fistulizing Crohn's disease.� He cannot begin biologic therapy with active abscesses.
Underwent drainage with interventional radiology January 2022 and has been on Flagyl and Levaquin with ongoing diarrhea.� He did not get TPN during his hospitalization.� Plan was to move forward with colonoscopy if abscesses are adequately drained.
CT February 2022 interval resolution of retrovesicular pouch collection with drainage catheter in place, slight decrease presacral fluid collection with interval development of a small air containing second collection in the presacral space,
indeterminate left lobe liver lesion likely cyst unchanged from prior study.� Can consider MRI.
CT January 2022 inflammatory changes involving distal sigmoid and rectum and anal region with fistula tract and abscess formation, largest abscess is slightly larger compared to September 2021.
MRI September 2021 complex perianal fistula with intra sphincter abscess extending to the circumferential involving the anorectal junction, inflammation and fluid extends to the presacral, perirectal and rectoprostatic spaces with associated
abscesses as described.� Active inflammation involving the rectum and sigmoid extending to image distal descending colon with 2 intramural collections at the junction of the descending colon and sigmoid colon.
Blood work reviewed September 2021 showed no levels and no antibodies both to Remicade or Humira, QuantiFERON was indeterminate, hep B studies negative not vaccinated against hepatitis B, CRP 64
His doctor at [facility] (Dr. Naqvi) who he started seeing in Nov 2024 has been slowly weaning down his prednisone now on 8 mg with plans for him to decrease by 1 mg.� He has been on prednisone since Nov 2017.��
Patient was seen by Dr. Rivers March 2025 after not seeing him since 2021. He had requested a colostomy creation at that point. The IR drain has been there since 2021. He continues to be chronically on steroids since 2021. He also saw Dr. Hess at .
[facility] in [place] area who told him that his surgeon may have to remove his colon. There was plan to directly admit him which was done on April 12. He then left the hospital and declined blood transfusion for hemoglobin of 6.5 despite
recommendations from all providers. Plan was to remove IR drain. He did have a CT scan done which showed fairly extensive fistulous disease. Fistula is in the left lower quadrant between the rectosigmoid and proximal sigmoid and between adjacent
loops of proximal sigmoid. Perirectal and perianal fistula in the left ischiorectal transgluteal percutaneous drainage catheter.
Lost 14 lb since April 03.
Has not had colonoscopy 2013.� Colonoscopy 2013 Dr. Duran inflammation characterized by erythema, friability, loss of vasculature from anus to cecum. Terminal ileum normal. Biopsies show mild acute erosive and chronic ileitis, chronic ulcer of the
IC valve, no active inflammation in the right side of the colon, some chronicity on the left side.
Meds tried: IFX (psoriasiform reaction? worse in 2012, insurance issue), humira (no help), budesonide, prednisone, 5ASA, Entyvio, Cimzia
Today, he continues to have a lot of drainage from his anus. He feels extremely weak. He is bed ridden due to the weakness in his legs.� Lost 35 lb since March. �He is having 4-5 bowel movements a day, nonbloody, no nocturnal bowel movements, no
urgency, no abdominal pain, positive incontinence. He states he is unable to collect a stool due to the incontinence. Since our last office visit, I did a colonoscopy as below and he met with Dr. Gant from [facility]. Dr. Gant
recommended diverging ostomy given the fact that his colon was not severely inflamed and a diversion of the fecal stream for best chance of fistula healing along with biologic therapy. Then we can decide once his fistulas have healed we can
potentially take down the diversion and see how he does. Due to his failure with anti-TNF, he recommended Skyrizi.
Colonoscopy May 2025 perianal fistula, extensive with drainage, skin around the anus inflamed and fibrotic. Stricture at the anus. Multiple polyps in the rectosigmoid and sigmoid consistent with inflammatory polyps biopsies taken. Inflammation
characterized by altered vasculature, edema, granularity, loss of vasculature continuous and circumferential pattern from rectum to splenic, sigmoid worse with edema especially at 30 cm. Descending some narrow but no clear stricture. Fistula opening
seen in the sigmoid. Additionally in the rectosigmoid there was an area of bright mucosa this was biopsied separately. In the transverse, there was an area of nodularity including 2 areas that looked like inverted tic under NBI. Right colon appeared
normal. Biopsies taken throughout. Terminal ileum normal. I do not both intubate deeply only went to about 5 cm. Pathology showed normal terminal ileum, random colon on the right side normal, inflammation only seen in the sigmoid with focal chronic
active colitis, all polyps were pseudopolyps. At the rectosigmoid area there was some acute erosive inflammation.
Past Medical History
Past Medical History: Other (Crohn's disease of large and small bowel since 2007, iron deficiency anemia, TIA)
Past Surgical History: Other (Fistula surgery, rectal fistulas x 3 in 2016, x 2 in 2017, drain from sigmoid colon removed 2024)
Social History
Tobacco: Former Smoker
Alcohol: None
Family History
Family History: Reviewed & Not Pertinent
Allergies / Home Medications
Allergy/AdvReac Type Severity Reaction Status Date / Time
penicillin G Allergy Hives Verified 08/11/25 12:32
Penicillins Allergy Hives Verified 08/11/25 12:32
�Medication �Instructions �Recorded
multivitamin 1 tab PO DAILY Supplement 04/25/25
Review of Systems
-
All other systems: A 12 pt ROS was Negative except as stated above in HPI
Vital Signs
Temp Pulse Resp BP Pulse Ox
97.9 F 81 16 104/62 98
08/13/25 11:25 08/13/25 11:25 08/13/25 11:25 08/13/25 11:25 08/13/25 11:25
Physical Exam
Exam
GI: Soft and Tender (Discomfort on palpation all over the abdomen without guarding or rigidity)
Results
WBC 8.4 10^3/uL (4.8-10.8) 08/13/25 06:23
Hgb 7.6 g/dL (13.0-18.0) L D 08/13/25 06:23
Hct 24.6 % (39.0-52.0) L 08/13/25 06:23
MCV 71.3 fL (80.0-94.0) L 08/13/25 06:23
Plt Count 552 10^3/uL (130-400) H 08/13/25 06:23
Absolute Neuts (auto) 12.1 10^3/uL (1.4-6.5) H 08/11/25 12:39
PT 15.3 Sec (11.4-14.6) H 08/11/25 12:39
INR 1.17 08/11/25 12:39
APTT 41.0 Sec (23.4-35.0) H 08/11/25 12:39
Sodium 136 mmol/L (135-145) 08/13/25 06:23
Potassium 4.0 mmol/L (3.5-5.1) 08/13/25 06:23
Chloride 108 mmol/L (98-107) H 08/13/25 06:23
Carbon Dioxide 22 mmol/L (22-30) 08/13/25 06:23
BUN 8 mg/dl (9-20) L 08/13/25 06:23
Creatinine 0.7 mg/dL (0.7-1.3) 08/13/25 06:23
Calcium 7.9 mg/dl (8.4-10.2) L 08/13/25 06:23
Total Bilirubin 0.5 mg/dl (0.2-1.3) 08/11/25 12:39
AST 16 U/L (17-59) L 08/11/25 12:39
ALT 15 U/L (0-50) 08/11/25 12:39
Alkaline Phosphatase 89 U/L (38-126) 08/11/25 12:39
Diagnostic Image Results:
Prior GI Procedures: As above
EGD:
Colonoscopy:
Assessment / Plan
-
44-year-old male with severe complicated Crohn's disease failed multiple Biologics, history of noncompliance, history of multiple abscesses and perianal fistulas presenting with feculent drainage from perianal fistulous, multiple abscesses, iron
deficiency anemia currently not on any therapy for his Crohn's as he failed Biologics, last prednisone use was in early May, now admitted for medical optimization for planned robotic transverse colostomy 08/17/2025.
-Crohn's disease of small and large bowel
Currently on regular diet and being optimized prior to planned robotic transverse colostomy by colorectal surgery team and also potential seton drains to be placed at the same time
discussed with Dr. Rivers and [facility] Dr. Gant plan for diversion ostomy with Skyrizi postop. Ideally would start Skyrizi 2 to 4 weeks postop.
Typically, MR enterography is indicated as a baseline to further evaluate his small bowel but given his overall weakness and need for surgery JESSICA, we will hold off at this time and will need to do small bowel imaging postoperatively.
Skyrizi (risankinumab) was reviewed with pt by , risks and benefits. There was one case of severe liver abnormalities. Risks include infusion reaction, increased risk of infection, most common side effects URI, headaches, arthralgias at
week 12. May also have injection site reaction, abdominal pain, anemia, pyrexia, back pain, arthropathy, UTI, hypersensitivity reaction. Recommend to monitor LFTs at baseline during induction to at least 12 weeks. Need baseline tuberculosis test. No
live vaccines but recommend to stay up to date on vaccines. Injection a week 0, 4, 8 and subcu at week 12 and every 8 weeks.
-Iron deficiency anemia, received about 4 units of packed red blood cells
On IV iron as well
Monitor with daily labs
Will follow along during this hospital visit
-
-
Thank you for consultation and allowing me to participate in the patient's care. Please call the section leader screen printing GI physician during the after hours with any questions or concerns.
--- NOTE | 2025-08-13 11:50 | W.PN.HOSP.TC ---
Today's Communication/Plan
-
IV Iron
Ensure BID
IV Abx
AM labs
Assessment / Plan
Assessment / Plan
Assessment:
severe perianal and rectosigmoid/descending colon Crohn's disease with associated perianal and colorectal fistulas
leukocytosis
- Colorectal surgery following
- continue Levaquin/Flagyl
- OR for robotic transverse colostomy
- diet: regular with supplements
Acute anemia on anemia of chronic disease
- s/p 4 units PRBC in ER, Hb 7.6
- IV iron course
- will d/w Colorectal service on Thursday for optimal Hb goal pre-op
- follow AM labs
Reactive thrombocytosis
- monitor CBC
Hyponatremia
- Likely secondary to poor oral intake
- monitor BMP.
Moderate protein caloric malnutrition:
- Patient is poor appetite and overall not eating well.
- continue Ensure BID.
- Encourage oral hydration
DVT ppx: Lovenox
Code: Full
Anticipated Discharge: > 48 hours
Subjective/Interval History
-
Date of Service: August 13, 2025
resting comfortably
Hb 7.6
Objective Data
-
Labs:
Laboratory Results
08/13/25
06:23
WBC 8.4
Hgb 7.6 L D
Hct 24.6 L
Plt Count 552 H
Sodium 136
Potassium 4.0
Chloride 108 H
Carbon Dioxide 22
BUN 8 L
Creatinine 0.7
Glucose 77
Calcium 7.9 L
Vital Signs:
Vital Signs
Temp Pulse Resp BP Pulse Ox
97.9 F 81 16 104/62 98
08/13/25 11:25 08/13/25 11:25 08/13/25 11:25 08/13/25 11:25 08/13/25 11:25
I&O
08/12/25 08/13/25 08/14/25
06:59 06:59 06:59
Intake Total 2655 / 2655 2780 / 2780
Output Total 1200 / 1200 1910 / 1910
Balance 1455 / 1455 870 / 870
Physical Exam
-
General: No Apparent Distress
HEENT: Normocephalic and Atraumatic
Respiratory: Other; Negative Wheezes
Cardiac: Regular Rhythm and S1/S2
GI: Soft and Nontender
Neuro: AO x 3
Psych: Calm
Data Reviewed
-
Total Time Spent with Patient (in minutes): 42
Labs: Labs Reviewed by me
[2025-08-13] MEDS: FERRLECIT 110 MG IV (14:38)
[2025-08-13 16:00] VITALS: BP 102/61
[2025-08-13] MEDS: LEVAQUIN 100 IV (17:03)
[2025-08-13 19:00] VITALS: BP 108/72
[2025-08-13] MEDS: MELATONIN 10 MG PO (21:02)
[2025-08-14] MEDS: NSS 1000 IV ×2 (00:41→14:44)
[2025-08-14] MEDS: FLAGYL 500 MG 100 IV ×2 (00:41→08:53)
[2025-08-14 03:00] VITALS: BP 100/65
[2025-08-14 06:30] LABS: Hematocrit 25.2 % (39.0-52.0); Hemoglobin 7.8 g/dL (13.0-18.0); Mean Corp Hgb Conc. 31.0 g/dL (33.0-37.0); Mean Corpuscular Volume 73.9 fL (80.0-94.0); Platelet Count 550 10^3/uL (130-400); Red Cell Dist. Width 20.3 % (11.5-14.5)
[2025-08-14 06:49] LABS: Blood Urea Nitrogen 9 mg/dl (9-20); Calcium 8.0 mg/dl (8.4-10.2); Carbon Dioxide 25 mmol/L (22-30); Chloride 109 mmol/L (98-107); Estimated Creatinine Clearance 123 ml/min; Glucose 80 mg/dl (70-99); Potassium 3.9 mmol/L (3.5-5.1); Sodium 137 mmol/L (135-145); eGFR > 60.00
[2025-08-14 07:35] VITALS: BP 99/66
--- NOTE | 2025-08-14 09:47 | W.PN.CRS1 ---
Today's Communication / Plan
-
OR
transfuse prn
IV abx
regular diet
Assessment/Plan
-
44-year-old male with h/o Crohn's disease of the rectosigmoid and descending colon areas with perianal fistulous disease as well as pelvic abscesses and interloop fistulas of the rectosigmoid. CT with multiple perianal fistulas and small fluid
collections with proctosigmoiditis
Tentative OR for robotic transverse colostomy
Hgb 7.8 (7.6, 6.3), WBC 8.0
Plan:
-Transfuse if hemoglobin below 7.0
-Diet as tolerated, encouraged protein intake
-C/W IV ABX with levaquin/flagyl
-Analgesics prn
-SCDs while in bed, chemical vte ppx on hold until h/h stable
-OR . Will khurram-up later this week and consult wound for stoma marking.
-Discussed CT done on 08/11 with IR - unable to access presacral collection
Subjective Data
Subjective Data
Date of Service: August 14, 2025
Patient states he had a bowel movement last night. He denies any pain but says his abdomen feels more like 'discomfort'. He denies nausea or vomiting. Tolerating diet.
Objective Data
-
Vital Signs
Temp Pulse Resp BP Pulse Ox
97.5 F 70 16 99/66 95
08/14/25 07:35 08/14/25 07:35 08/14/25 07:35 08/14/25 07:35 08/14/25 07:35
Intake & Output
08/13/25 08/14/25 08/15/25
06:59 06:59 06:59
Intake Total 2780 / 2780 2460 / 2460 100 / 100
Output Total 191 / 1910 720 / 720 1025 / 1025
Balance 870 / 870 1740 / 1740 -925 / -925
Intake:
Oral fluids 1080 / 1080 480 / 480
IV fluids (Total) 800 / 800 1580 / 1580
IV piggybacks 400 / 400 400 / 400 100 / 100
Blood Product Amount Infused ( 500 / 500
mL)
Packed Rbc Leukoreduced Unit 250 / 250
[id number]
Packed Rbc Leukoreduced Unit 250 / 250
[id number]
Output:
Urine, Voided 1909 720 / 720 1025 / 1025
Other:
Number of approximated MODERATE 1
amounts of urine
Number of unmeasured liquid
stools
Rectum 1
Lab Results
08/14/25 06:07
08/14/25 06:07
Physical Exam
-
General: No Acute Distress and AOx3
Abdomen: Soft, Non Distended and Non Tender
--- NOTE | 2025-08-14 10:36 | CM ---
Reviewed the chart notes and spoke with the patient at the bedside. Patient anticipates going to OR for robotic transverse colostomy. Discussed with the patient possibility of needing VN care at discharge. Patient has had VN in the
past. Referral sent to VN. CM continues to be available to patient/family and is monitoring medical plan for needs at discharge.
Plan: Discharge plans most likely home with VN.
[2025-08-14 11:25] VITALS: BP 90/55
--- NOTE | 2025-08-14 13:25 | WOUNDNOTE ---
[facility] RN note: Patient admitted with anemia.
See H&P for complete history.
PMH: Past Medical History: Reports Other
Additional Past Medical History:
Past medical history:
Chron's disease
Intra-abdominal fistula
Colonic perforation
Perirectal fistula and abscess
Wound Location and type/assessment: Patient admitted with: foul smelling draining fistula's on perineum and L buttocks. Perineum red and raw, patient states he has used barrier cream in past and it does nothing. Currently using a depends to absorb
drainage, leaking onto Covidien underneath. Has multiple offloading cushions at home patient states. Nurse Connor assisted with assessment. Sacrum and heels are intact, can turn self to sides, had laying flat and sitting at edge of bed for stoma
siting. LUQ marked 6cm from midline and 3.5cm proximal from umbilical line. Mid abdomen marked 3.5cm proximal from umbilical line. Patient agreeable with sites, unable to stand up at this time.
Appetite: Fair, encouraged protein in diet.
Pressure redistribution devices in place: On Accumax, able to turn to sides, air cushion provided.
Plan: After gently cleaning with warm water, applied non woven gauze and ABD pads with mesh underwear. Supplies left at bedside to re apply as needed. Offered sitz bath, patient declined. Called [facility] for Colostomy starter kit, nurse Connor aware and
will give to patient. Patient asking allot of questions regarding pouches and how to manage. Extensive teaching done and made aware that ostomy nurse will follow post op. Patient made aware that may have another ostomy nurse double check stoma sites
before surgery. Will confirm orders with hospitalist and updated nurse.
Updated care plan and will follow as needed.
Note to case management of equipment requested for discharge: Wound Ostomy nurse at home.
Recommend follow up with Dr. Rivers.
[2025-08-14] MEDS: FERRLECIT 110 MG IV (14:45)
[2025-08-14] MEDS: LEVAQUIN 500 MG PO (15:51)
[2025-08-14] MEDS: FLAGYL 500 MG PO (15:51)
[2025-08-14 16:44] VITALS: BP 93/59
--- NOTE | 2025-08-14 16:51 | W.PN.HOSP.TC ---
Today's Communication/Plan
-
IV antibiotics
Follow hemoglobin
Regular consistency diet
Plan is to optimize for surgical intervention on 08/17
Assessment / Plan
Assessment / Plan
Assessment:
severe perianal and rectosigmoid/descending colon Crohn's disease with associated perianal and colorectal fistulas
leukocytosis
- Colorectal surgery following
- continue Levaquin/Flagyl
- OR for robotic transverse colostomy
- diet: regular with supplements
Acute anemia on anemia of chronic disease
- s/p 4 units PRBC in ER, Hb 7.6
- IV iron course
- will d/w Colorectal service on Thursday for optimal Hb goal pre-op
- follow AM labs
Reactive thrombocytosis
- monitor CBC
Hyponatremia
- Likely secondary to poor oral intake
- monitor BMP.
Moderate protein caloric malnutrition:
- Patient is poor appetite and overall not eating well.
- continue Ensure BID.
- Encourage oral hydration
DVT ppx: Lovenox
Code: Full
Anticipated Discharge: > 48 hours
Subjective/Interval History
-
Date of Service: August 14, 2025
Objective Data
-
Labs:
Laboratory Results
08/14/25
06:07
WBC 8.0
Hgb 7.8 L
Hct 25.2 L
Plt Count 550 H
Sodium 137
Potassium 3.9
Chloride 109 H
Carbon Dioxide 25
BUN 9
Creatinine 0.7
Glucose 80
Calcium 8.0 L
Vital Signs:
Vital Signs
Temp Pulse Resp BP Pulse Ox
97.8 F 72 18 93/59 99
08/14/25 16:44 08/14/25 16:44 08/14/25 16:44 08/14/25 16:44 08/14/25 16:44
I&O
08/13/25 08/14/25 08/15/25
06:59 06:59 06:59
Intake Total 2780 / 2780 2460 / 2460 1170 / 1170
Output Total 1909 / 1909 720 / 720 1025 / 1025
Balance 870 / 870 1740 / 1740 145 / 145
Physical Exam
-
General: Well Developed and No Apparent Distress
HEENT: Normocephalic, Atraumatic and Moist Mucous Membranes
Respiratory: Clear to Auscultation
Cardiac: Regular Rhythm and S1/S2; Negative Murmur, Rub or Gallop
GI: Soft, Nontender, Nondistended and Normal Bowel Sounds; Negative Organomegaly
Rectal: Deferred by Provider
Musculoskeletal: No Clubbing, No Cyanosis and No Edema
Skin: Negative Rash
Neuro: Nonfocal/Grossly Intact
[2025-08-14 17:28] VITALS: BMI 17.6
[2025-08-14] MEDS: LOVENOX 40 MG SC (17:28)
--- NOTE | 2025-08-14 17:31 | W.PN.GI.CBS2 ---
Addendum entered and electronically signed by Natalie Sotelo MD 08/14/25 17:35:
Will follow eripherally until after the planned surgery
Original Note:
Today's Communication / Plan
-
-Crohn's disease of small and large bowel
As per colorectal, they will review with IR regarding collections noted on CT scan
Further plan for colorectal surgery
Currently on regular diet and being optimized prior to planned robotic transverse colostomy by colorectal surgery team and also potential seton drains to be placed at the same time
discussed with Dr. Rivers and [facility] Dr. Gant plan for diversion ostomy with Skyrizhung postop. Ideally would start Skyrizi 2 to 4 weeks postop.
Typically, MR enterography is indicated as a baseline to further evaluate his small bowel but given his overall weakness and need for surgery JESSICA, we will hold off at this time and will need to do small bowel imaging postoperatively.
Skyrizi (risankinumab) was reviewed with pt by , risks and benefits. There was one case of severe liver abnormalities. Risks include infusion reaction, increased risk of infection, most common side effects URI, headaches, arthralgias at
week 12. May also have injection site reaction, abdominal pain, anemia, pyrexia, back pain, arthropathy, UTI, hypersensitivity reaction. Recommend to monitor LFTs at baseline during induction to at least 12 weeks. Need baseline tuberculosis test. No
live vaccines but recommend to stay up to date on vaccines. Injection a week 0, 4, 8 and subcu at week 12 and every 8 weeks.
-Iron deficiency anemia, received about 4 units of packed red blood cells
On IV iron as well
Monitor with daily labs
Will follow along during this hospital visit
Assessment / Plan
-
44-year-old male with severe complicated Crohn's disease failed multiple Biologics, history of noncompliance, history of multiple abscesses and perianal fistulas presenting with feculent drainage from perianal fistulous, multiple abscesses, iron
deficiency anemia currently not on any therapy for his Crohn's as he failed Biologics, last prednisone use was in early May, now admitted for medical optimization for planned robotic transverse colostomy 08/17/2025.
-Crohn's disease of small and large bowel
As per colorectal, they will review with IR regarding collections noted on CT scan
Further plan for colorectal surgery
Currently on regular diet and being optimized prior to planned robotic transverse colostomy by colorectal surgery team and also potential seton drains to be placed at the same time
discussed with Dr. Rivers and [facility] Dr. Gant plan for diversion ostomy with Skyrizhung postop. Ideally would start Skyrizi 2 to 4 weeks postop.
Typically, MR enterography is indicated as a baseline to further evaluate his small bowel but given his overall weakness and need for surgery JESSICA, we will hold off at this time and will need to do small bowel imaging postoperatively.
Skyrizi (risankinumab) was reviewed with pt by , risks and benefits. There was one case of severe liver abnormalities. Risks include infusion reaction, increased risk of infection, most common side effects URI, headaches, arthralgias at
week 12. May also have injection site reaction, abdominal pain, anemia, pyrexia, back pain, arthropathy, UTI, hypersensitivity reaction. Recommend to monitor LFTs at baseline during induction to at least 12 weeks. Need baseline tuberculosis test. No
live vaccines but recommend to stay up to date on vaccines. Injection a week 0, 4, 8 and subcu at week 12 and every 8 weeks.
-Iron deficiency anemia, received about 4 units of packed red blood cells
On IV iron as well
Monitor with daily labs
Will follow along during this hospital visit
Subjective
Subjective
Date of Service: August 14, 2025
Continues to have abdominal pain but not more than his usual, still having sme drainage from the fistula and smal mushy stool
Objective
Data Reviewed
Laboratory Data:
Laboratory Results
08/14/25 06:07
08/14/25 06:07
Laboratory Results
PT 15.3 Sec (11.4-14.6) H 08/11/25 12:39
INR 1.17 08/11/25 12:39
APTT 41.0 Sec (23.4-35.0) H 08/11/25 12:39
Total Bilirubin 0.5 mg/dl (0.2-1.3) 08/11/25 12:39
AST 16 U/L (17-59) L 08/11/25 12:39
ALT 15 U/L (0-50) 08/11/25 12:39
Alkaline Phosphatase 89 U/L (38-126) 08/11/25 12:39
Vital Signs and I&O:
Vital Signs
Temp Pulse Resp BP Pulse Ox
97.8 F 72 18 93/59 99
08/14/25 16:44 08/14/25 16:44 08/14/25 16:44 08/14/25 16:44 08/14/25 16:44
I&O
08/13/25 08/14/25 08/15/25
06:59 06:59 06:59
Intake Total 2780 / 2780 2460 / 2460 1170 / 1170
Output Total 191 / 191 720 / 720 1025 / 1025
Balance 870 / 870 1740 / 1740 145 / 145
Physical Exam
Physical Exam
GI: Soft and Tender (some discomfort on palpation in mid abdomen)
[2025-08-14 19:00] VITALS: BP 101/62
[2025-08-14] MEDS: MELATONIN 10 MG PO (22:08)
[2025-08-14 23:00] VITALS: BP 108/63
[2025-08-15 03:00] VITALS: BP 109/65
[2025-08-15 06:23] LABS: Hematocrit 26.1 % (39.0-52.0); Hemoglobin 7.8 g/dL (13.0-18.0); Mean Corp Hgb Conc. 29.9 g/dL (33.0-37.0); Mean Corpuscular Volume 74.6 fL (80.0-94.0); Nucleated Red Blood Cells % 0 % (-); Platelet Count 556 10^3/uL (130-400); Red Cell Dist. Width 21.2 % (11.5-14.5)
[2025-08-15 06:44] LABS: Blood Urea Nitrogen 11 mg/dl (9-20); Calcium 8.3 mg/dl (8.4-10.2); Carbon Dioxide 25 mmol/L (22-30); Chloride 110 mmol/L (98-107); Estimated Creatinine Clearance > 125 ml/min; Glucose 74 mg/dl (70-99); Potassium 3.8 mmol/L (3.5-5.1); Sodium 138 mmol/L (135-145); eGFR > 60.00
[2025-08-15 07:35] VITALS: BP 102/61
--- NOTE | 2025-08-15 09:37 | PN.CDI ---
CDI
- -
CDI:
Physician Documentation Request
Admit Date: 08/11/25 14:11
Dear Doctor Malu,
Patient admitted with anemia.
08/14 PN,'severe perianal and rectosigmoid/descending colon Crohn's disease with associated perianal and colorectal fistulas...
leukocytosis.'
08/14 Colorectal Surgery PN,'....perianal fistulous disease as well as pelvic abscesses and interloop fistulas of the rectosigmoid....C/W IV ABX with Levaquin/Flagyl.'
On admission, WBC 15.1 and HR> 90.
Please clarify which of the following most accurately describes the status of the patient's infection:
Sepsis, POA
Crohn's with pelvic abscesses only
Other
Sepsis
- Systemic manifestations of infection, with 2 or more SIRS criteria which include:
- Fever >100.9 degrees F or hypothermia < 96.8 degrees F
- Leukocytosis - WBC > 12,000 or leukopenia - WBC < 4,000 or > 10% bands
- Tachycardia > 90 beats per minute
- Tachypnea - RR > 20 breaths per minute or PaCO2 , 32mmHg
Source: Merck Manual 2013
- Indicate the known or suspected organism
- Indicate the known or suspected underlying infection, such as pelvic abscesses
Localized Infection Only, Without Systemic Illness
- indicate the site/source, such as pelvic abscesses
Other
Use of terms such as suspected, likely, concern for, or probable (associated with a specific diagnosis that is being evaluated, monitored, or treated as if it exists) are acceptable and can be coded in the inpatient setting, when documented at the
time of discharge.
Thank you,
Ilene MEDRANON,RN,CCDS
CDI Specialist
Available via Cool text
Please use your independent medical judgment in providing your response.
[2025-08-15] MEDS: FLAGYL 500 MG PO ×4 (09:39→23:47)
--- NOTE | 2025-08-15 09:53 | W.PN.CRS1 ---
Today's Communication / Plan
-
regular diet today, clears in AM
continue antibiotics
OR
Assessment/Plan
-
44-year-old male with h/o Crohn's disease of the rectosigmoid and descending colon areas with perianal fistulous disease as well as pelvic abscesses and interloop fistulas of the rectosigmoid. CT with multiple perianal fistulas and small fluid
collections with proctosigmoiditis
Tentative OR day for robotic transverse colostomy
Hgb 7.8 (7.8, 7.6, 6.3), WBC 7.7 (8.0)
Plan:
-Transfuse if hemoglobin below 7.0
-Diet as tolerated, encouraged protein intake
-C/W IV ABX with levaquin/flagyl
-Analgesics prn
-SCDs while in bed, will start Lovenox
-OR . Start prep tomorrow afternoon with IVFS, clears in AM. Appreciate wound for stoma marking.
-Discussed CT done on 08/11 with IR - unable to access presacral collection
Subjective Data
Subjective Data
Date of Service: August 15, 2025
Patient states he has no complaints. Denies nausea or vomiting.
Objective Data
-
Vital Signs
Temp Pulse Resp BP Pulse Ox
97.6 F 71 18 102/61 98
08/15/25 07:35 08/15/25 07:35 08/15/25 07:35 08/15/25 07:35 08/15/25 07:35
Intake & Output
08/14/25 08/15/25 08/16/25
06:59 06:59 06:59
Intake Total 2460 / 2460 1650 / 1650 400 / 400
Output Total 720 / 720 2150 / 2150 600 / 600
Balance 1740 / 1740 -500 / -500 -200 / -200
Intake:
Oral fluids 480 / 480 480 / 480 400 / 400
IV fluids (Total) 1580 / 1580 960 / 960
IV piggybacks 400 / 400 210 / 210
Output:
Urine, Voided 720 / 720 2150 / 2150 600 / 600
Other:
Number of approximated MODERATE 1 1
amounts of urine
Lab Results
08/15/25 05:46
08/15/25 05:46
Physical Exam
-
General: No Acute Distress and AOx3
Abdomen: Soft, Non Distended and Non Tender
Skin: Warm and Dry
--- NOTE | 2025-08-15 10:19 | VNURNOTE ---
Home Health Liaison met with patient at bedside to discuss [facility] nurse/therapy, visits, schedule and homebound status. Patient is agreeable and understands that visits at home will be 2-3 x per week to assess and teach medical management. He is
familiar with [facility] services, has had in the past. He is aware that [facility] will contact them for start of care in 1-2 days after discharge from . Provided contact number for [facility].
[facility] referral accepted in [facility].
[2025-08-15 11:20] VITALS: BP 109/57
--- NOTE | 2025-08-15 11:45 | CM ---
Reviewed the chart notes. Patient for surgery tomorrow. CM continues to be available to patient/family and is monitoring medical plan for needs at discharge.
Plan: Discharge plans will depend on the patient's progress.
[2025-08-15] MEDS: FERRLECIT 110 MG IV (14:12)
--- NOTE | 2025-08-15 14:43 | W.PN.HOSP.TC ---
Today's Communication/Plan
-
Remains on regular diet.
Continue supportive care per
Monitor hemoglobin per
Tentatively for surgical intervention on 06/16
Assessment / Plan
Assessment / Plan
Assessment:
severe perianal and rectosigmoid/descending colon Crohn's disease with associated perianal and colorectal fistulas
leukocytosis
- Colorectal surgery following
- continue Levaquin/Flagyl
- OR for robotic transverse colostomy
- diet: regular with supplements
Acute anemia on anemia of chronic disease
- s/p 4 units PRBC in ER, Hb 7.6
- IV iron course
- will d/w Colorectal service on Thursday for optimal Hb goal pre-op
- follow AM labs
Reactive thrombocytosis
- monitor CBC
Hyponatremia
- Likely secondary to poor oral intake
- monitor BMP.
Moderate protein caloric malnutrition:
- Patient is poor appetite and overall not eating well.
- continue Ensure BID.
- Encourage oral hydration
DVT ppx: Lovenox
Code: Full
Anticipated Discharge: > 48 hours
Subjective/Interval History
-
Date of Service: August 15, 2025
Objective Data
-
Labs:
Laboratory Results
08/15/25
05:46
WBC 7.7
Hgb 7.8 L
Hct 26.1 L
Plt Count 556 H
Sodium 138
Potassium 3.8
Chloride 110 H
Carbon Dioxide 25
BUN 11
Creatinine 0.6 L
Glucose 74
Calcium 8.3 L
Vital Signs:
Vital Signs
Temp Pulse Resp BP Pulse Ox
98.0 F 68 16 109/57 99
08/15/25 11:20 08/15/25 11:20 08/15/25 11:20 08/15/25 11:20 08/15/25 11:20
I&O
08/14/25 08/15/25 08/16/25
06:59 06:59 06:59
Intake Total 2460 / 2460 1650 / 1650 510 / 510
Output Total 720 / 720 2150 / 2150 900 / 900
Balance 1740 / 1740 -500 / -500 -390 / -390
Physical Exam
-
General: Well Developed and No Apparent Distress
HEENT: Normocephalic, Atraumatic and Moist Mucous Membranes
Respiratory: Clear to Auscultation
Cardiac: Regular Rhythm and S1/S2; Negative Murmur, Rub or Gallop
GI: Soft, Nontender, Nondistended and Normal Bowel Sounds; Negative Organomegaly
Rectal: Deferred by Provider
Musculoskeletal: No Clubbing, No Cyanosis and No Edema
Skin: Negative Rash
Neuro: Nonfocal/Grossly Intact
[2025-08-15 15:25] VITALS: BP 105/67
[2025-08-15] MEDS: LEVAQUIN 500 MG PO (17:22)
[2025-08-15] MEDS: LOVENOX 40 MG SC (17:22)
[2025-08-15 19:00] VITALS: BP 101/60
[2025-08-15] MEDS: MELATONIN 10 MG PO (21:22)
[2025-08-15 23:00] VITALS: BP 104/66
[2025-08-16] VITALS (7 sets, daily range): BP systolic 92–110; BP diastolic 61–68
--- NOTE | 2025-08-16 02:48 | DOWNTIME ---
There was a inc[employer] Client [employer] Downtime on 08/16/2025 from 0100 to 08/16/2025 at 0215. Downtime documentation of patient's care, including medication administrations, has been reconciled in the electronic record per guidelines. Refer to the
patient's paper chart under the miscellaneous tab to see printed paper medication records and downtime forms.
[2025-08-16 08:03] LABS: Hematocrit 27.9 % (39.0-52.0); Hemoglobin 8.3 g/dL (13.0-18.0); Mean Corp Hgb Conc. 29.7 g/dL (33.0-37.0); Mean Corpuscular Volume 75.6 fL (80.0-94.0); Nucleated Red Blood Cells % 0 % (-); Platelet Count 567 10^3/uL (130-400); Red Cell Dist. Width 21.9 % (11.5-14.5)
[2025-08-16 08:27] LABS: Blood Urea Nitrogen 12 mg/dl (9-20); Calcium 8.0 mg/dl (8.4-10.2); Carbon Dioxide 25 mmol/L (22-30); Chloride 107 mmol/L (98-107); Estimated Creatinine Clearance > 125 ml/min; Glucose 70 mg/dl (70-99); Potassium 3.9 mmol/L (3.5-5.1); Sodium 136 mmol/L (135-145); eGFR > 60.00
[2025-08-16] MEDS: LEVAQUIN 50 IV (10:10)
[2025-08-16] MEDS: FLAGYL PO (10:15)
--- NOTE | 2025-08-16 11:10 | CM ---
Reviewed the chart notes. Patient for surgery . CM continues to be available to patient/family and is monitoring medical plan for needs at discharge.
Plan: Discharge plans will depend on the patient's progress.
[2025-08-16] MEDS: FLAGYL 250 MG 50 IV ×2 (11:42→18:28)
--- NOTE | 2025-08-16 12:41 | W.PN.CRS1 ---
Today's Communication / Plan
-
Bowel prep today
Clears
N.p.o. at midnight
Assessment/Plan
-
44-year-old male with h/o Crohn's disease of the rectosigmoid and descending colon areas with perianal fistulous disease as well as pelvic abscesses and interloop fistulas of the rectosigmoid. CT with multiple perianal fistulas and small fluid
collections with proctosigmoiditis
Tentative OR for robotic transverse colostomy
Hgb 8.3 (7.8, 7.8, 7.6, 6.3), WBC 8.5 (7.7, 8.0)
Plan:
-Transfuse if hemoglobin below 7.0
-On clear liquids today
-Start GoLytely today in preparation for OR
-C/W IV ABX with levaquin/flagyl
-Analgesics prn
-SCDs while in bed, will start Lovenox
-OR . Discussed with patient. N.p.o. at midnight.
-Discussed CT done on 08/11 with IR - unable to access presacral collection
Subjective Data
Subjective Data
Date of Service: August 16, 2025
Patient states he has no changes. He has not been eating much solid food in anticipation for his surgery. Denies nausea or vomiting.
Objective Data
-
Vital Signs
Temp Pulse Resp BP Pulse Ox
97.5 F 71 18 94/62 98
08/16/25 08:15 08/16/25 08:15 08/16/25 08:15 08/16/25 08:15 08/16/25 02:50
Intake & Output
08/15/25 08/16/25 08/17/25
06:59 06:59 06:59
Intake Total 1650 / 1650 2110 / 2110
Output Total 2150 / 2150 1675 / 1675
Balance -500 / -500 435 / 435
Intake:
Oral fluids 480 / 480 1000 / 1000
IV fluids (Total) 960 / 960 1000 / 1000
IV piggybacks 210 / 210 110 / 110
Output:
Urine, Voided 2149
Other:
Number of approximated MODERATE 1
amounts of urine
Lab Results
08/16/25 06:46
08/16/25 06:46
Physical Exam
-
General: No Acute Distress and AOx3
Abdomen: Soft, Non Distended and Non Tender
Skin: Warm and Dry
[2025-08-16] MEDS: NORMOSOL-R/PLASMALYTE-A 1000 IV (13:51)
[2025-08-16] MEDS: FERRLECIT 110 MG IV (13:58)
--- NOTE | 2025-08-16 14:35 | W.PN.HOSP.TC ---
Today's Communication/Plan
-
Hemoglobin stable
Prep for surgery
Assessment / Plan
Assessment / Plan
Assessment:
severe perianal and rectosigmoid/descending colon Crohn's disease with associated perianal and colorectal fistulas
leukocytosis
- Colorectal surgery following
- continue Levaquin/Flagyl
- OR for robotic transverse colostomy
- diet: regular with supplements
Acute anemia on anemia of chronic disease
- s/p 4 units PRBC in ER, Hb 7.6
- IV iron course
- will d/w Colorectal service on Thursday for optimal Hb goal pre-op
- follow AM labs
Reactive thrombocytosis
- monitor CBC
Hyponatremia
- Likely secondary to poor oral intake
- monitor BMP.
Moderate protein caloric malnutrition:
- Patient is poor appetite and overall not eating well.
- continue Ensure BID.
- Encourage oral hydration
DVT ppx: Lovenox
Code: Full
Anticipated Discharge: > 48 hours
Subjective/Interval History
-
Date of Service: August 16, 2025
Objective Data
-
Labs:
Laboratory Results
08/16/25
06:46
WBC 8.5
Hgb 8.3 L
Hct 27.9 L
Plt Count 567 H
Sodium 136
Potassium 3.9
Chloride 107
Carbon Dioxide 25
BUN 12
Creatinine 0.6 L
Glucose 70
Calcium 8.0 L
Vital Signs:
Vital Signs
Temp Pulse Resp BP Pulse Ox
98.0 F 74 18 100/67 100
08/16/25 11:35 08/16/25 11:35 08/16/25 11:35 08/16/25 11:35 08/16/25 11:35
I&O
08/15/25 08/16/25 08/17/25
06:59 06:59 06:59
Intake Total 1650 / 1650 211 / 2109 210 / 210
Output Total 2149 / 2149 1675 / 1675 300 / 300
Balance -500 / -500 435 / 435 -90 / -90
Physical Exam
-
General: Well Developed and No Apparent Distress
HEENT: Normocephalic, Atraumatic and Moist Mucous Membranes
Respiratory: Clear to Auscultation
Cardiac: Regular Rhythm and S1/S2; Negative Murmur, Rub or Gallop
GI: Soft, Nontender, Nondistended and Normal Bowel Sounds; Negative Organomegaly
Rectal: Deferred by Provider
Musculoskeletal: No Clubbing, No Cyanosis and No Edema
Skin: Negative Rash
Neuro: Nonfocal/Grossly Intact
--- NOTE | 2025-08-16 14:39 | WOUNDNOTE ---
WOC RN note: Checked stoma bray per Hali Griffin's request. LUQ marked 1st choice, there is also a mid upper abdomen stoma cassy. Agree with LUQ stoma cassy as 1st choice. Patient for transverse colostomy surgery tomorrow.
[2025-08-16] MEDS: NULYTELY SOLUTION 4 LITERS PO (15:17)
[2025-08-16] MEDS: MELATONIN 10 MG PO (21:21)
[2025-08-17] VITALS (14 sets, daily range): BP systolic 89–108; BP diastolic 55–73
[2025-08-17] MEDS: NORMOSOL-R/PLASMALYTE-A 1000 IV ×2 (02:10→16:48)
[2025-08-17] MEDS: FLAGYL 250 MG 50 IV ×2 (02:11→09:22)
[2025-08-17] MEDS: NORMOSOL-R/PLASMALYTE-A IV (03:27)
--- NOTE | 2025-08-17 05:03 | PTCARENOTE ---
Pt completed bowel prep. CHG wipes done and linens changed.
[2025-08-17 07:35] LABS: Blood Urea Nitrogen 9 mg/dl (9-20); Calcium 8.2 mg/dl (8.4-10.2); Carbon Dioxide 25 mmol/L (22-30); Chloride 104 mmol/L (98-107); Estimated Creatinine Clearance 108 ml/min; Glucose 70 mg/dl (70-99); Potassium 4.0 mmol/L (3.5-5.1); Sodium 133 mmol/L (135-145); eGFR > 60.00
[2025-08-17 07:40] LABS: Hematocrit 29.7 % (39.0-52.0); Hemoglobin 8.7 g/dL (13.0-18.0); Mean Corp Hgb Conc. 29.3 g/dL (33.0-37.0); Mean Corpuscular Volume 74.8 fL (80.0-94.0); Platelet Count 556 10^3/uL (130-400); Red Cell Dist. Width 23.0 % (11.5-14.5)
--- NOTE | 2025-08-17 09:24 | CM ---
Patient seen at bedside
OR Today-robotic transverse colostomy
CM available for discharge planning/needs
PLAN: TBD, plans will depend on the patient's progress, CM to continue to follow for needs
[2025-08-17] MEDS: NEURONTIN 600 MG PO (10:33)
[2025-08-17] MEDS: TYLENOL 1000 MG PO (10:34)
[2025-08-17] MEDS: HEPARIN 5000 UNITS SC (10:35)
--- NOTE | 2025-08-17 13:05 | W.PN.HOSP.TC ---
Today's Communication/Plan
-
Hemoglobin stable
To OR today
Assessment / Plan
Assessment / Plan
Assessment:
severe perianal and rectosigmoid/descending colon Crohn's disease with associated perianal and colorectal fistulas
leukocytosis
- Colorectal surgery following
- continue Levaquin/Flagyl
- OR for robotic transverse colostomy
- diet: regular with supplements
Acute anemia on anemia of chronic disease
- s/p 4 units PRBC in ER
Hemoglobin stable at 8.7
- IV iron course
Reactive thrombocytosis
- monitor CBC
Hyponatremia
- Likely secondary to poor oral intake
- monitor BMP.
Moderate protein caloric malnutrition:
- Patient is poor appetite and overall not eating well.
- continue Ensure BID.
- Encourage oral hydration
DVT ppx: Lovenox
Code: Full
Anticipated Discharge: > 48 hours
Subjective/Interval History
-
Date of Service: August 17, 2025
Objective Data
-
Labs:
Laboratory Results
08/17/25
06:43
WBC 14.0 H
Hgb 8.7 L
Hct 29.7 L
Plt Count 556 H
Sodium 133 L
Potassium 4.0
Chloride 104
Carbon Dioxide 25
BUN 9
Creatinine 0.8
Glucose 70
Calcium 8.2 L
Vital Signs:
Vital Signs
Temp Pulse Resp BP Pulse Ox
99.0 F 93 16 90/57 98
08/17/25 07:45 08/17/25 07:45 08/17/25 07:45 08/17/25 07:45 08/17/25 09:00
I&O
09/17/25 09/18/25 09/19/25
06:59 06:59 06:59
Intake Total 2109 / 2109 4000 / 4000 50 / 50
Output Total 1675 / 1675 1750 / 1750 300 / 300
Balance 435 / 435 2250 / 2250 -250 / -250
Physical Exam
-
General: Well Developed and No Apparent Distress
HEENT: Normocephalic, Atraumatic and Moist Mucous Membranes
Respiratory: Clear to Auscultation
Cardiac: Regular Rhythm and S1/S2; Negative Murmur, Rub or Gallop
GI: Soft, Nontender, Nondistended and Normal Bowel Sounds; Negative Organomegaly
Rectal: Deferred by Provider
Musculoskeletal: No Clubbing, No Cyanosis and No Edema
Skin: Negative Rash
Neuro: Nonfocal/Grossly Intact
--- NOTE | 2025-08-17 14:17 | W.IMMPOSTOP ---
Addendum entered and electronically signed by Damian Rivers MD 08/17/25 15:54:
Of note, I updated patient's mother, Janet, via phone conversation about an hour ago.
Also of note, patient with apparent RLQ non-tense hematoma (likely port related)--noted in RR. Holding pressure and plan to place abdominal binder.
Original Note:
Surgical Immed Post Op Note
-
Primary Surgeon: Du Rivers MD
Assisting Surgeon: Francesco Scott; ELIZABETH Lawton
Pre-op Diagnosis: severe large bowel crohn's with associated fistulous disease
Post-op Diagnosis: same
Procedure Performed: 1) robotic transverse end-colostomy creation 2) anal exam under anesthesia with seton placement and replacement
Anesthesia Type: general plus local
Specimen / Cultures: none
Estimated Blood Loss: 30 cc
Complications: no immediate
Operative Findings: severe perianal fistulous disease
Garces in bladder.
Will send back to med surg.
[2025-08-17] MEDS: TORADOL IV (14:54)
[2025-08-17] MEDS: ZOFRAN 4 MG IV (15:10)
[2025-08-17] MEDS: TYLENOL 650 MG PO ×2 (16:54→20:35)
[2025-08-17] MEDS: FERRLECIT 110 MG IV (16:55)
[2025-08-17] MEDS: LEVAQUIN IV (17:03)
--- NOTE | 2025-08-17 17:12 | PTCARENOTE ---
pt returned to room 2116 from PACU at 1650. pt arrived via bed, awake and alert. denies c/o pain or nausea. Left Colostomy patent w/red budded stoma, small amount of serous drainage noted, +flatus from stoma. Abd binder intact, 3 lap sites LEAH
and RLQ 4x4 dsg intact. ice pack in place over binder. Garces patent w/clear yellow urine. tolerating sips of water. care ongoing.
[2025-08-17] MEDS: LEVAQUIN 100 IV (17:57)
[2025-08-17] MEDS: FLAGYL 500 MG 100 IV (20:34)
[2025-08-17] MEDS: TORADOL 10 MG IV (20:43)
[2025-08-17] MEDS: MELATONIN 10 MG PO (21:07)
[2025-08-18] VITALS (7 sets, daily range): BP systolic 92–105; BP diastolic 56–69; BMI 18.9
[2025-08-18] MEDS: TYLENOL 650 MG PO ×5 (00:33→20:16)
[2025-08-18] MEDS: FLAGYL 500 MG 100 IV ×3 (02:58→18:20)
[2025-08-18] MEDS: TORADOL 10 MG IV ×4 (02:58→21:06)
[2025-08-18] MEDS: NORMOSOL-R/PLASMALYTE-A 1000 IV (04:24)
[2025-08-18] MEDS: NORMOSOL-R/PLASMALYTE-A IV ×2 (04:56→13:47)
[2025-08-18 06:43] LABS: Hematocrit 31.2 % (39.0-52.0); Hemoglobin 9.3 g/dL (13.0-18.0); Mean Corp Hgb Conc. 29.8 g/dL (33.0-37.0); Mean Corpuscular Volume 76.3 fL (80.0-94.0); Nucleated Red Blood Cells % 0 % (-); Platelet Count 442 10^3/uL (130-400); Red Cell Dist. Width 22.9 % (11.5-14.5)
[2025-08-18 07:44] LABS: Blood Urea Nitrogen 12 mg/dl (9-20); Calcium 7.7 mg/dl (8.4-10.2); Carbon Dioxide 26 mmol/L (22-30); Chloride 103 mmol/L (98-107); Estimated Creatinine Clearance > 125 ml/min; Glucose 91 mg/dl (70-99); Magnesium 2.2 mg/dl (1.6-2.3); Potassium 4.2 mmol/L (3.5-5.1); Sodium 133 mmol/L (135-145); eGFR > 60.00
[2025-08-18] MEDS: PROTONIX 40 MG PO (08:56)
[2025-08-18] MEDS: TYLENOL PO (09:01)
--- NOTE | 2025-08-18 09:15 | W.PN.CRS1 ---
Today's Communication / Plan
-
fulls to regular
oob
shower
dc olivas
lovenox
Assessment/Plan
-
POD#1 1) robotic transverse end-colostomy creation 2) anal exam under anesthesia with seton placement and replacement
vitals normal, Hgb: 9.3 (8.7, 8.3), WBC: 9.9
-Advance to fulls, if tolerates, regular for dinner
-OOB
-DC IVFs when tolerating po
-Lovenox for dvt prophylaxis, teds and scds in place
-Okay to shower
-D/C olivas
-Wound RN for ostomy care
-Pain control: tyelnol/toradol standing, dilaudid prn
Subjective Data
Procedure
08/17 -1) robotic transverse end-colostomy creation 2) anal exam under anesthesia with seton placement and replacement
Subjective Data
Date of Service: August 18, 2025
Patient states he feels well. There is some flatus and stool in his bag. His pain is controlled. Denies nauesa or vomiting.
Objective Data
-
Vital Signs
Temp Pulse Resp BP Pulse Ox
97.5 F 70 17 98/56 96
08/18/25 03:05 08/18/25 03:05 08/18/25 03:05 08/18/25 03:05 08/18/25 03:05
Intake & Output
08/17/25 08/18/25 08/19/25
06:59 06:59 06:59
Intake Total 4000 / 4000 1750 / 1750
Output Total 1750 / 1750 1220 / 1220
Balance 2250 / 2250 530 / 530
Intake:
Oral fluids 1440 / 1440
IV fluids (Total) 2300 / 2300 1600 / 1600
Normosol 400 / 400
IV piggybacks 260 / 260 150 / 150
Output:
Liquid stool amount
Colostomy
Urine, Olivas 825 / 825
Urine, Voided 1750 / 1750 300 / 300
Other:
Number of unmeasured liquid
stools
Rectum 1
Lab Results
08/18/25 06:07
08/18/25 06:07
Physical Exam
-
General: No Acute Distress and AOx3
Abdomen: Soft, Non Distended, Non Tender and Other (stoma warm and pink with flatus in the bag)
Skin: Warm and Dry
Incision: Clear, Dry, Intact
--- NOTE | 2025-08-18 10:17 | WOUNDNOTE ---
[facility] RN note: Patient s/p colostomy yesterday. Stoma pink and budded. Ostomy appliance intact. Stoma functioning for liquid brown stool. Instructed patient how to empty pouch, how to measure and cut wafer and snap on pouch. Patient instructed to
change appliance 2 times a week and as needed for leakage. Instructed patient to empty pouch when it's 1/3-1/2 full. Ostomy supplies ([place] wafer # [id number], Ita seal and [place] pouch # [id number]) and colostomy teaching folder given. Patient
stated he will be discharged as early as tomorrow to home. Wellman texted MICAELA Virgen requesting VN be set up and that appliance is due to be changed on Thursday. Patient instructed pressure injury prevention measures. He stated he is repositioning.
He declined and air chair cushion.
--- NOTE | 2025-08-18 12:27 | WOUNDNOTE ---
WOC RN note: Patient had given permission to order a [employer] secure starter kit. Faxed patient signed [employer] Secure ostomy starter kit request form to [place].
--- NOTE | 2025-08-18 12:44 | W.PN.HOSP.TC ---
Today's Communication/Plan
-
Diet has been advanced to regular today.
Postoperative care.
Continue antibiotics to complete total of 2 weeks of treatment with plan to transition to oral Levaquin and Flagyl upon discharge
Assessment / Plan
Assessment / Plan
Assessment:
severe perianal and rectosigmoid/descending colon Crohn's disease with associated perianal and colorectal fistulas
leukocytosis
Status post robotic transverse and colostomy creation with anal exam under anesthesia on 08/17
Diet has been advanced
Plan is to complete total of 2 weeks of antibiotic therapy including Levaquin and Flagyl. Transition to oral upon discharge.
Acute anemia on anemia of chronic disease
- s/p 4 units PRBC in ER
-IV iron given
Hemoglobin stable and improving at 9.3 today
Reactive thrombocytosis
- monitor CBC
Hyponatremia
- Likely secondary to poor oral intake
- Sodium stable at 133.
Moderate protein caloric malnutrition:
- Patient is poor appetite and overall not eating well.
- continue Ensure BID.
- Encourage oral hydration
DVT ppx: Lovenox
Code: Full
Anticipated Discharge: 24 - 48 hours
Subjective/Interval History
-
Date of Service: August 18, 2025
Objective Data
-
Labs:
Laboratory Results
08/18/25
06:07
WBC 9.9
Hgb 9.3 L
Hct 31.2 L
Plt Count 442 H D
Sodium 133 L
Potassium 4.2
Chloride 103
Carbon Dioxide 26
BUN 12
Creatinine 0.7
Glucose 91
Calcium 7.7 L
Vital Signs:
Vital Signs
Temp Pulse Resp BP Pulse Ox
97.5 F 59 16 101/62 99
08/18/25 03:05 08/18/25 07:30 08/18/25 07:30 08/18/25 07:30 08/18/25 07:30
I&O
08/17/25 08/18/25 08/19/25
06:59 06:59 06:59
Intake Total 4000 / 4000 1750 / 1750 340 / 340
Output Total 1750 / 1750 1220 / 1220 545 / 545
Balance 2250 / 2250 530 / 530 -205 / -205
Physical Exam
-
General: Well Developed and No Apparent Distress
HEENT: Normocephalic, Atraumatic and Moist Mucous Membranes
Respiratory: Clear to Auscultation
Cardiac: Regular Rhythm and S1/S2; Negative Murmur, Rub or Gallop
GI: Soft, Nontender, Nondistended, Normal Bowel Sounds and Ostomy; Negative Organomegaly
Rectal: Deferred by Provider
Musculoskeletal: No Clubbing, No Cyanosis and No Edema
Skin: Negative Rash
Neuro: Nonfocal/Grossly Intact
[2025-08-18] MEDS: FLUSH (NSS) 2 FLUSH IV (16:43)
[2025-08-18] MEDS: LEVAQUIN 150 IV (16:43)
[2025-08-18] MEDS: LOVENOX 40 MG SC (18:20)
[2025-08-18] MEDS: MELATONIN 10 MG PO (21:06)
[2025-08-19] MEDS: TYLENOL 650 MG PO ×2 (00:33→08:20)
[2025-08-19] MEDS: FLAGYL 500 MG 100 IV ×2 (01:00→10:15)
[2025-08-19] MEDS: TORADOL 10 MG IV ×2 (02:41→08:21)
[2025-08-19 04:44] VITALS: BMI 19.7
[2025-08-19] MEDS: TYLENOL PO ×2 (05:04→11:50)
[2025-08-19 06:05] VITALS: BMI 19.7
[2025-08-19 07:45] VITALS: BP 109/67
[2025-08-19] MEDS: PROTONIX 40 MG PO (08:20)
--- NOTE | 2025-08-19 08:43 | W.PN.HOSP.TC ---
Addendum entered and electronically signed by Zachery Estrada MD 08/19/25 10:41:
Dont use billing under this PN, use DC summary instead
Original Note:
Today's Communication/Plan
-
pending Colorectal assessment for D/C
Assessment / Plan
Assessment / Plan
44yo M with Crohns disease with extensive perianal fistulas admittedfor planned colostomy to allow perianal fistula healing as discussed between GI and Dr. 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
units PRBC transfused and started on Abx due to leukocytosis and concern for colitis and infected perianal fistulas. Had 1) robotic transverse end-colostomy creation 2) anal exam under anesthesia with seton placement and replacement on 08/17/25.
Developed also RLQ non-tense hematoma (likely port related) that is decreasing in size. Otherwise was recovering well and started on solid food, that he tollerated without problems with appropriate colostomy function
A/P:
#severe perianal and rectosigmoid/descending colon Crohn's disease with associated perianal and colorectal fistulas
LEvaquin/FLagyl
S/P Colostmy by Colorectal Sx
pain mgmt
#RLQ non-tense hematoma
Improving
#ABDIRIZAK
follow and transfuse to keep Hgb>7
Iron supplement
#Reactive thrombocytosis
improving
#Hyponatremia
mild, not worsening, 2/2 periOP IVF
#Moderate protein caloric malnutrition
Advise to increase calorie intake
#Hypocalcemia
replete
DVt ppx lovenox
Full code
I have spent at least 52min reviewing chart, test results, communication with consultants and providing direct patient care
Anticipated Discharge: Within 24 hours
Subjective/Interval History
-
Date of Service: August 19, 2025
Objective Data
-
Vital Signs:
Vital Signs
Temp Pulse Resp BP Pulse Ox
98.1 F 64 18 109/67 98
08/19/25 07:45 08/19/25 07:45 08/19/25 07:45 08/19/25 07:45 08/19/25 07:45
I&O
08/18/25 08/19/25 08/20/25
06:59 06:59 06:59
Intake Total 1750 / 1750 1330 / 1330
Output Total 1220 / 1220 1245 / 1245
Balance 530 / 530 85 / 85
Review of Systems
-
History Source: Patient
All other systems: Reviewed and negative
Physical Exam
-
General: No Apparent Distress
Cardiac: Regular Rhythm
GI: Soft, Nontender, Nondistended, Ostomy and Other (minimal induration over port insertion area on RUQ without significant pain and redness and is decreasing in size as per patient)
Musculoskeletal: No Clubbing, No Cyanosis and No Edema
Neuro: Awake, Alert, Oriented and AO x 3
Psych: Calm
[2025-08-19] MEDS: CALCIUM GLUCONATE 100 IV (09:26)
--- NOTE | 2025-08-19 10:41 | W.DCSUMMARY ---
Discharge Summary
Discharge Data
Date of Admission: 08/11/25
Date of Discharge: 08/19/25
-
Pending Results: No
Hospital Course
44yo M with Crohns disease with extensive perianal fistulas admitted for planned colostomy to allow perianal fistula healing as discussed between ANIKET and Dr. 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
4 units PRBC transfused and started on Abx due to leukocytosis and concern for colitis and infected perianal fistulas. Had 1) robotic transverse end-colostomy creation 2) anal exam under anesthesia with seton placement and replacement on 08/17/25.
Developed also RLQ non-tense hematoma (likely port related) that is decreasing in size. Otherwise was recovering well and started on solid food, that he tollerated without problems with appropriate colostomy function. As per recommendation from
ColoRectalSx - cont on Levaquin?Flagyl for total of 2 weeks. Previous EKG reviewied - no HX of long QTc. Precautions to avoid ligaments tear provided. Can ambulate in the room without assistance. Medically stable for d/c home
I have spent at least 52min reviewing chart, test results, communication with consultants and providing direct patient care
Patient was managed for:
#severe perianal and rectosigmoid/descending colon Crohn's disease with associated perianal and colorectal fistulas
#RLQ non-tense hematoma
#ABDIRIZAK
#Reactive thrombocytosis
#Hyponatremia
#Moderate protein caloric malnutrition
#Hypocalcemia
Discharge Plan
-
Patient Disposition: Home (Routine Discharge)
Discharge Diagnosis/Procedures: Perianal fistula, Crohns
Diet: Regular
Activity Restrictions/Additional Instructions:
Wound Care Instructions
buttocks/perineum: clean with warm water,(can rinse in shower if needed) apply non woven gauze then ABD over draining fistulas, secure with mesh underwear. Change prn soilage.
Colostomy supplies: Sarika wafer # [id number], Ita seal and [place] pouch # [id number]. Change 2 times a week and as needed for leakage. If leakage becomes a problem, can try Sarika cut to fit soft convex wafer # [id number] instead. Or can try Sarika
1 piece cut to fit soft convex pouch #[id number] with Ita seal.
Call supply company (list in folder provided) for monthly Ostomy supplies after discharge (ask VN to order supplies while on service).
Follow up with surgeon.
Call [facility] RN nurse for ostomy pouching concerns or leakage problems [phone] or [phone] or [phone].
Referrals:
Damian Rivers MD [Active, ColoRectal] - in one to two weeks
Jacinto Davis DO [Family Provider, Internal Medicine]
Additional Discharge Medication Instructions: Avoid scratching exercises while on Levofloxacine
Prescriptions:
New
levofloxacin 750 mg tablet
750 mg PO DAILY Qty: 12 0RF
metronidazole 500 mg tablet
500 mg PO Q8H Qty: 36 0RF
oxycodone 5 mg capsule
5 mg PO Q8H PRN (Reason: Pain) Qty: 4 0RF
Continued
multivitamin Tablet
1 tab PO DAILY
Discharge Orders:
Discharge Patient (As Directed); Ordered 08/19/25
Ordered By: Zachery Estrada
Discharge Date and Time
Print Language: PORTUGUESE
[2025-08-19 11:15] VITALS: BP 110/54
--- NOTE | 2025-08-19 12:18 | W.PN.CRS1 ---
Today's Communication / Plan
-
discharge
Assessment/Plan
-
POD#2 1) robotic transverse end-colostomy creation 2) anal exam under anesthesia with seton placement and replacement
vitals normal, no labs
-Continue regular diet
-OOB
-Lovenox for dvt prophylaxis, teds and scds in place
-Okay to shower
-Wound RN for ostomy care
-Pain control: tyelnol/toradol standing, dilaudid prn
-OKay for discharge from our perspective. Follow up with Dr. Garcia in 2 weeks.
Subjective Data
Procedure
08/17 -1) robotic transverse end-colostomy creation 2) anal exam under anesthesia with seton placement and replacement
Subjective Data
Date of Service: August 19, 2025
Patient doing well. No complaints. He can manage his colostomy.
Objective Data
-
Vital Signs
Temp Pulse Resp BP Pulse Ox
98.5 F 69 16 110/54 99
08/19/25 11:15 08/19/25 11:15 08/19/25 11:15 08/19/25 11:15 08/19/25 11:15
Intake & Output
08/18/25 08/19/25 08/20/25
06:59 06:59 06:59
Intake Total 1750 / 1750 1330 / 1330 480 / 480
Output Total 1220 / 1220 1245 / 1245 300 / 300
Balance 530 / 530 85 / 85 180 / 180
Intake:
Oral fluids 480 / 480 480 / 480
IV fluids (Total) 1600 / 1600 500 / 500
Normosol 400 / 400
IV piggybacks 150 / 150 350 / 350
Output:
Liquid stool amount 95 / 95 45 / 45
Colostomy 95 / 95 45 / 45
Urine, Garces 825 / 825 500 / 500
Urine, Voided 300 / 300 700 / 700 300 / 300
Lab Results
08/18/25 06:07
08/18/25 06:07
Physical Exam
-
General: No Acute Distress and AOx3
Abdomen: Soft, Non Distended, Non Tender and Other (colostomy with function)
Skin: Warm and Dry
--- NOTE | 2025-08-19 13:37 | CM ---
Patient discharged home prior to CM being able to see patient. Patient was referred and accepted to [facility], CM sent message via phone and all scripts that patient was discharged for follow up. CM will continue to follow for discharge planning needs.
plan; home with VN; [facility]
== END 2025-08-19 11:58 | disposition home health service (06) | DRG 330 ==
LOC: 2 SOUTH 14:11
PROVIDERS: Emergency Medicine; Nurse Practitioner Family; Nurse Practitioner Gerontology; Physician Assistant; Registered Nurse; ADMITTING PHYSICIAN Internal Medicine; ATTENDING PHYSICIAN Internal Medicine; CONSULT PHYSICIAN Internal Medicine Gastroenterology; CONSULT PHYSICIAN Surgery; EMERGENCY PHYSICIAN Emergency Medicine; FAMILY PHYSICIAN Internal Medicine
PROC: 30233N0 Transfusion of Autologous Red Blood Cells into Peripheral Vein, Percutaneous Approach (ICD-10-PCS; 2025-08-11)
PROC: 8E0W4CZ Robotic Assisted Procedure of Trunk Region, Percutaneous Endoscopic Approach (ICD-10-PCS; 2025-08-17)
PROC: 0D1L4Z4 Bypass Transverse Colon to Cutaneous, Percutaneous Endoscopic Approach (ICD-10-PCS; 2025-08-17)
PROC: 0D9QX0Z Drainage of Anus with Drainage Device, External Approach (ICD-10-PCS; 2025-08-17)
DX: K50.813 Crohn's disease of both small and large intestine with fistula (principal); E44.0 Moderate protein-calorie malnutrition; E87.1 Hypo-osmolality and hyponatremia; D63.8 Anemia in other chronic diseases classified elsewhere; D50.9 Iron deficiency anemia, unspecified; D75.838 Other thrombocytosis; M79.81 Nontraumatic hematoma of soft tissue; E83.51 Hypocalcemia; D72.829 Elevated white blood cell count, unspecified; R32 Unspecified urinary incontinence; Z74.01 Bed confinement status; Z79.52 Long term (current) use of systemic steroids; Z79.899 Other long term (current) drug therapy; Z87.891 Personal history of nicotine dependence
CPT/HCPCS: 74177; 80048; 80053; 82607; 82728; 82746; 83540; 83550; 83735; 85014; 85018; 85025; 85027; 85610; 85730; 86850; 86900; 86901; 86920; 87040; 99285; J2916; P9016; Q9967